=== PATIENT | male | born 1955 | race Caucasian/White ===

== ENCOUNTER → 2017-01-30 | Outpatient (CLI) | payer OTHER ==
--- NOTE | 2017-01-30 16:00 | CT ---
EXAMINATION: CT thoracic spine HISTORY: Paralysis COMPARISON: MRI from the same day TECHNIQUE: Axial CT images obtained through the thoracic spine without contrast. Coronal and sagitta l reconstructions obtained. FINDINGS: The thoracic spinal alignment appears grossly normal. There is mild wedging of the T10 carmine tebral body. There are osseous fragments within the central canal posterior to T10-T11. Posterior fu vidya hardware is noted extending from T8 to L1 bilaterally. Bone mineralization appears normal. The paravertebral soft tissues appear grossly normal. Mild dependent atelectasis is noted within the mary gs. There is mild neural foraminal stenosis noted on the left at T8-T9, T9-T10, and T10-T11. Facet f usion is also noted from T9 to T11 level and bilaterally IMPRESSION: 1. Posterior fusion hardware noted from T8 to L1 bilaterally. 2. Mild compression of the T10 vertebral body with osseous fragments within the spinal canal at T10- T11 gradegrade: 3. No acute osseous abnormality.
--- NOTE | 2017-01-31 08:54 | MR ---
EXAMINATION: MRI of thoracic spine HISTORY: Pain COMPARISON: CT from the same day TECHNIQUE: Multiplanar and multisequence images obtained through the thoracic spine without contrast . FINDINGS: Again noted is bilateral posterior fusion hardware within the thoracolumbar spine. Endplat e signal changes are noted at T7-T8 otherwise no abnormal bone marrow signal demonstrated. The thora cic spinal cord signal appears normal to the T8 level. Below this the spinal cord is not well apprec iated. There appears to be disruption of the thecal sac at T10-T11. The paravertebral soft tissues a ppear normal. T1-T2: Minimal diffuse disc bulge without significant spinal canal or neural foraminal stenosis. T2-T3: Minimal diffuse disc bulge without significant spinal canal or neural foraminal stenosis. T3-T4: Minimal diffuse disc bulge without significant spinal canal or neural foraminal stenosis. T4-T5: Unremarkable. T5-T6: Unremarkable. T6-T7: Unremarkable. T7-T8: Moderate diffuse disc bulge with mild spinal canal stenosis. No significant neural foraminal stenosis. T8-T9: Grossly unremarkable. T9-T10: Disc space narrowing without significant disc bulge, spinal canal or neural foraminal stenos is. T10-T11: Disruption of the thecal sac without visualization of the spinal cord at this level. T11-T12: Unremarkable. IMPRESSION: 1. Disruption of the thecal sac at T10 with nonvisualization of the spinal cord below T7-T8 likely p osttraumatic in nature. 2. Bilateral posterior fusion hardware noted within the thoracolumbar region. 3. Mild multilevel degenerative disc disease with individual details above.
== END ==
LOC: MW.MRI 10:22
PROVIDERS: ATTEND Pain Medicine Pain Medicine
DX: M54.6 Pain in thoracic spine (principal); G82.20 Paraplegia, unspecified; M51.34 Other intervertebral disc degeneration, thoracic region; Z98.1 Arthrodesis status
CPT/HCPCS: 72128; 72128-26; 72146; 72146-26

== ENCOUNTER 2019-12-28 19:18 | Emergency (ER) | payer OTHER ==
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
[2019-12-28 19:59] LABS: BLOOD UREA NITROGEN,BUN 20 mg/dL (7.0-18.0); CARBON DIOXIDE,CO2 21.6 mmol/L (21.0-32.0); CHLORIDE,CL 101 mmol/L (98-107); GLUCOSE RANDOM 176 mg/dL (74-106); POTASSIUM,K 3.3 mmol/L (3.5-5.1); SODIUM,NA 140 mmol/L (136-148)
--- NOTE | 2019-12-28 20:11 | CT ---
Head CT Technique: Multiple axial sections through the brain were obtained. Intravenous contrast was not utilized. Comparison: No prior intracranial imaging is available. Findings: Ventricles along with basal cisterns and sulci over the convexities are moderately prominent. Atherosclerotic change is noted within the carotid siphon. No abnormal parenchymal densities are seen. No evidence of intracranial hemorrhage. No midline shift or mass-effect is seen. Slight mucosal thickening is seen within the inferior right maxillary sinus and within the posterior left ethmoid sinus. No acute calvarial finding is seen. Mastoid sinuses are clear. Impression: 1. Minimal sinus findings which are most likely chronic. 2. Generalized atrophy. 3. No acute intracranial abnormality is appreciated. Diagnostic code #2 This report was dictated in [place] Standard Time
[2019-12-28 22:26] VITALS: BP 150/76; PULSE 84
== END 2019-12-28 21:50 | disposition home or self-care (01) ==
LOC: MW.ED 19:18
DX: Z00.00 Encounter for general adult medical examination without abnormal findings (principal); Z79.899 Other long term (current) drug therapy
CPT/HCPCS: 36415; 70450; 70450-26; 80053; 80305-QW; 80307; 81001; 84145; 84484; 85025; 85610; 86140; 93005; 99283; 99285-25

== ENCOUNTER 2020-04-20 09:38 | Day surgery (SDC) | payer OTHER ==
[~2020-04-20 09:38] MED LIST: Belladonna Alkaloids/Opium 16.2-30 MG Supp RECTAL ONE; Lactated Ringers 1,000 ML IV SCH; Sodium Chloride 0.9% 10 ML SDV IV PRN; Sodium Chloride 0.9% 10 ML Syringe FLUSH PRN; Sodium Chloride 0.9% 2.5 ML Syringe FLUSH PRN
[2020-04-20] MEDS ORDERED: fentaNYL 250 MCG/5 ML SDV ONE ×2 (10:25→11:37)
[2020-04-20] MEDS ORDERED: Midazolam 1 MG/ML 2 ML SDV ONE ×2 (10:25→11:37)
[2020-04-20] MEDS ORDERED: Propofol 200 MG/20 ML SDV ONE ×2 (10:25→11:37)
[2020-04-20] MEDS ORDERED: Ondansetron 4 MG/2 ML SDV ONE (10:28)
[2020-04-20] MEDS ORDERED: Lidocaine 2% 5 ML SDV ONE (10:28)
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
[2020-04-20] MEDS ORDERED: Gentamicin 40 MG/ML 2 ML Vial ONE (11:58)
[2020-04-20] MEDS ORDERED: Lidocaine 1% 20 ML MDV ONE (12:01)
[2020-04-20] MEDS ORDERED: Bupivacaine 0.5% 10 ML SDV ONE (12:01)
[2020-04-20] MEDS ORDERED: ePHEDrine 50 MG/ML SDV ONE (12:25)
[2020-04-20] MEDS ORDERED: fentaNYL 100 MCG/2 ML SDV IVPUSH PRN (12:28)
[2020-04-20] MEDS ORDERED: OXYCODONE 15 MG PO PRN (12:49)
[2020-04-20] MEDS ORDERED: Non-Formulary Medication 1 Each (Lorazepam 0.5 MG) PO PRN (12:49)
[2020-04-20] MEDS ORDERED: HYDROCORTISONE RECTAL PRN (12:49)
[2020-04-20] MEDS ORDERED: OXYCODONE 5 MG PO SCH (13:00)
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
--- NOTE | 2020-04-20 14:13 | PCM48HPAN ---
Post Anesthesia Note - EVALUATION WITHIN 48HRS OF ANESTHETIC Vital Signs in Normal Range: Yes Patient Participated in Evaluation: Yes Respiratory Function Stable: Yes Airway Patent: Yes Cardiovascular Function Stable: Yes Hydration Status Stable: Yes Pain Control Satisfactory: Yes Nausea and Vomiting Control Satisfactory: Yes Mental Status Recovered: Yes Vital Signs: Last Vital Signs Temp 97.0 F 04/20/20 13:25 Pulse 71 04/20/20 13:25 Resp 14 04/20/20 13:25 BP 142/79 H 04/20/20 13:25 Pulse Ox 95 04/20/20 13:25
--- NOTE | 2020-04-20 14:13 | PCM.POSTAN ---
POST ANESTHESIA ASSESSMENT - MENTAL STATUS Mental Status: Alert, Oriented - VITAL SIGNS Vital Signs: Last Vital Signs Temp 97.0 F 04/20/20 13:25 Pulse 71 04/20/20 13:25 Resp 14 04/20/20 13:25 BP 142/79 H 04/20/20 13:25 Pulse Ox 95 04/20/20 13:25 - RESPIRATORY Respiratory Status: Respiratory Rate WNL, Airway Patent, O2 Saturation Stable - CARDIOVASCULAR CV Status: Pulse Rate WNL, Blood Pressure Stable - GASTROINTESTINAL GI Status: No Symptoms - POST OP HYDRATION Hydration Status: Adequate & Stable
[2020-04-20 16:24] VITALS: BP 145/82; PULSE 65
[2020-04-20] MEDS ORDERED: Non-Formulary Medication 1 Each (Tizanidine [Zanaflex] 4 MG) PO SCH (21:00)
[2020-04-20] MEDS ORDERED: PREGABALIN 150 MG PO SCH (21:00)
[2020-04-20] MEDS ORDERED: CLOTRIMAZOLE TOP SCH (21:00)
[2020-04-20] MEDS ORDERED: ZOLPIDEM TARTRATE 10 MG PO SCH (21:00)
[2020-04-20] MEDS ORDERED: Non-Formulary Medication 1 Each (Simvastatin [Zocor] 20 MG) PO SCH (21:00)
[2020-04-20] MEDS ORDERED: NITROFURANTOIN MACROCRYSTAL 100 MG PO SCH (21:00)
[2020-04-21] MEDS ORDERED: MIRTAZAPINE 30 MG PO SCH (09:00)
[2020-04-21] MEDS ORDERED: TOLTERODINE 4 MG PO SCH (09:00)
[2020-04-21] MEDS ORDERED: Benztropine 1 MG Tab PO SCH (09:00)
[2020-04-21] MEDS ORDERED: SOLIFENACIN SUCCINATE 10 MG PO SCH (09:00)
[2020-04-21] MEDS ORDERED: Non-Formulary Medication 1 Each (Omeprazole [Omeprazole] 20 MG) PO SCH (09:00)
[2020-04-21] MEDS ORDERED: WARFARIN 6 MG PO SCH (09:00)
[2020-04-21] MEDS ORDERED: ARIPiprazole 10 MG Tab PO SCH (09:00)
== END 2020-04-20 16:10 | disposition home or self-care (01) ==
LOC: MW.SDS 09:38
PROVIDERS: ATTEND Urology
DX: N31.8 Other neuromuscular dysfunction of bladder (principal); J45.909 Unspecified asthma, uncomplicated; F41.9 Anxiety disorder, unspecified; F32.9 Major depressive disorder, single episode, unspecified; K21.9 Gastro-esophageal reflux disease without esophagitis; E78.00 Pure hypercholesterolemia, unspecified; G82.20 Paraplegia, unspecified; Z87.828 Personal history of other (healed) physical injury and trauma; Z88.0 Allergy status to penicillin; Z88.1 Allergy status to other antibiotic agents; Z79.899 Other long term (current) drug therapy
CPT/HCPCS: 51102; A9270; J1580; J2001; J2250; J2405; J2704; J3010; J3260; J7050; J7120; J3490

== ENCOUNTER 2021-01-06 21:17 | Emergency (ER) | payer OTHER ==
--- NOTE | 2021-01-06 21:31 | EDM.PDOC ---
ED HPI GENERAL MEDICAL PROBLEM - General Chief Complaint: Genitourinary Problem Stated Complaint: EMS Time Seen by Provider: 01/06/21 21:30 - History of Present Illness INITIAL COMMENTS - FREE TEXT/NARRATIVE: History of present illness: This paraplegic gentleman had his catheter flushed at [facility] today but then he accidentally snagged it and pulled it out this afternoon 1 hour before [facility]. Patient is paraplegic and has a neurogenic bladder. The catheter has been in place for 6 months or more. This particular one has been changed in less than a month. It got clogged and was flushed today at the [facility]. Review of systems: As per history of present illness and below otherwise all systems reviewed and negative. Past medical history: As per history of present illness and as reviewed below otherwise noncontributory. Surgical history: As per history of present illness and as reviewed below otherwise noncontributory. Social history: No reported history of drug or alcohol abuse. Family history: As per history of present illness and as reviewed below otherwise noncontributory. Physical exam: Constitutional - well developed, well-nourished and in no acute distress HEENT - normocephalic, no evidence of trauma - external nose and mouth normal - no mass in neck and no JVD - mucosae moist EYES - full EOM, PERRL, no icterus - no evidence of inflammation, injection, or drainage Respiratory - no respiratory distress, equal bilateral expansion GI - abdomen soft and suprapubic ostomy is not inflamed. Musculoskeletal no gross deformity of long bones or joints - no tenderness, swe lling or edema Neurologic - Alert and oriented times four - CN II-XII grossly intact - paraplegic Psychiatric - appropriate mood and affect with normal thought content Hematologic - No petechiae or purpura - mucosa appropriate color and sclera not pale - normal nail bed color and refill Integument - no rash or evidence of trauma - normal turgor Diagnostics: [] Therapeutics: [] Impression: [] Plan: [] Definitive disposition and diagnosis as appropriate pending reevaluation and review of above. - Related Data Allergies Allergy/AdvReac Type Severity Reaction Status Date / Time amoxicillin [From Augmentin] Allergy Cannot Verified 04/16/20 10:15 Remember clavulanic acid Allergy Cannot Verified 04/16/20 10:15 [From Augmentin] Remember Home Meds: Home Meds tiZANidine [Zanaflex] 4 mg PO BEDTIME 11/21/14 [History] LORazepam 0.5 mg PO DAILY PRN 05/31/15 [History] Omeprazole 20 mg PO DAILY 05/31/15 [History] Pregabalin [Lyrica] 150 mg PO BID 05/31/15 [History] Simvastatin [Zocor] 20 mg PO BEDTIME 05/31/15 [History] Tolterodine [Detrol LA 24 Hr] 4 mg PO DAILY 05/31/15 [History] Warfarin [Coumadin] 6 mg PO DAILY 12/28/19 [History] polyethylene glycoL 3350 [Miralax] 17 gm PO DAILY PRN 12/28/19 [History] ARIPiprazole [Abilify] 20 mg PO DAILY 04/16/20 [History] Benztropine Mesylate 1 mg PO DAILY 04/16/20 [History] Clotrimazole [Clotrimazole 1%] 1 applic TOP BID 04/16/20 [History] Hydrocortisone [Hydrocortisone 2.5% Crm] 1 applic RECTAL ASDIRECTED PRN 04/16/20 [History] Mirtazapine 30 mg PO DAILY 04/16/20 [History] Solifenacin Succinate 10 mg PO DAILY 04/16/20 [History] Zolpidem Tartrate 10 mg PO BEDTIME 04/16/20 [History] nitrofurantoin macrocrystaL [Macrodantin] 100 mg PO BID 04/16/20 [History] oxyCODONE 5 mg PO Q6H 04/16/20 [History] oxyCODONE 15 mg PO BID PRN 04/16/20 [History] Past Medical History HEENT History: Reports: Other (See Below) Other HEENT History: wears glasses Cardiovascular History: Reports: Blood Clots/VTE/DVT Other Cardiovascular History: hx of DVT- PE (post-op back surgery in 2014) had filter placed in "abdomen" Respiratory History: Reports: Asthma Other Respiratory History: hx of asthma as a child- no inhaler Gastrointestinal History: Reports: GERD Other Gastrointestinal History: s/p umbilical hernia repair 2009 Genitourinary History: Reports: Urinary Incontinence Other Genitourinary History: patient does self catheterization every 4-5 hours Musculoskeletal History: Reports: Back Pain, Chronic Other Musculoskeletal History: 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 Neurological History: Reports: Other (See Below) Other Neuro History: 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 Psychiatric History: Reports: Anxiety, Depression Other Psychiatric History: taking Cymbalta and Lorazepam Hematologic History: Reports: Anticoagulation Therapy, Blood Transfusion(s) Other Hematologic History: 2013 - Infectious Disease History Infectious Disease History: Reports: Chicken Pox - Past Surgical History Head Surgeries/Procedures: Reports: None Cardiovascular Surgical History: Reports: Vascular Surgery Other Cardiovascular Surgeries/Procedures: "filter " placed in "abdomen" becaused of DVT GI Surgical History: Reports: Hernia, Abdominal Other GI Surgeries/Procedures: hx of Umbilical hernia repair Neurological Surgical History: Reports: Other (See Below) Other Neurological Surgeries/Procedures: rods in back Other Musculoskeletal Surgeries/Procedures:: back surgery Social & Family History - Caffeine Use Caffeine Use: Reports: Soda ED ROS GENERAL - Review of Systems Review Of Systems: Comprehensive ROS is negative, except as noted in HPI. ED EXAM, GENERAL - Physical Exam Exam: See Below Free Text/Narrative:: My physical exam is in the HPI Course - Vital Signs Text/Narrative:: After sterile prep the suprapubic catheter was replaced uneventfully and urine flu - Orders/Labs/Meds Orders: Active Orders 24 hr Category Date Time Status Childers Catheter Insertion [Insert Urinary Catheter] [OM. Care 01/06/21 21:30 Ordered PC] Q24H Urinary Catheter Assessment [RC] ASDIRECTED Care 01/06/21 21:26 Active Departure - Departure Time of Disposition: 10:00 Disposition: Home, Self-Care 01 Condition: Good Clinical Impression: Dislodged Childesr catheter, Suprapubic catheter - Discharge Information Instructions: Indwelling Urinary Catheter Care, Adult Referrals: PCP,Unknown [Primary Care Provider] - Forms: ED Department Discharge Additional Instructions: [facility] - Urology [address] [place] [id number] The following information is given to patients seen in the emergency department who are being discharged to home. This information is to outline your options for follow-up care. We provide all patients seen in our emergency department with a follow-up referral. The need for follow-up, as well as the timing and circumstances, are variable depending upon the specifics of your emergency department visit. If you don't have a primary care physician on staff, we will provide you with a referral. We always advise you to contact your personal physician following an emergency department visit to inform them of the circumstance of the visit and for follow-up with them and/or the need for any referrals to a consulting specialist. The emergency department will also refer you to a specialist when appropriate. This referral assures that you have the opportunity for follow-up care with a specialist. All of these measure are taken in an effort to provide you with optimal care, which includes your follow-up. Under all circumstances we always encourage you to contact your private physician who remains a resource for coordinating your care. When calling for follow-up care, please make the office aware that this follow-up is from your recent emergency room visit. If for any reason you are refused follow-up, please contact the [facility] Emergency Department at and asked to speak to the emergency department charge nurse. - My Orders Last 24 Hours: My Active Orders 01/06/21 21:26 Urinary Catheter Assessment [RC] ASDIRECTED 01/06/21 21:30 Childers Catheter Insertion [Insert Urinary Catheter] [OM.PC] Q24H - Assessment/Plan Last 24 Hours: My Active Orders 01/06/21 21:26 Urinary Catheter Assessment [RC] ASDIRECTED 01/06/21 21:30 Childers Catheter Insertion [Insert Urinary Catheter] [OM.PC] Q24H
[2021-01-06 21:45] VITALS: BP 95/50; PULSE 78
== END 2021-01-06 22:36 | disposition home or self-care (01) ==
LOC: MW.ED 21:17
DX: T83.028A Displacement of other urinary catheter, initial encounter (principal); J45.909 Unspecified asthma, uncomplicated; K21.9 Gastro-esophageal reflux disease without esophagitis; Z88.0 Allergy status to penicillin; Z88.1 Allergy status to other antibiotic agents; Z79.01 Long term (current) use of anticoagulants; Z79.899 Other long term (current) drug therapy
CPT/HCPCS: 51705; 99283-25

== ENCOUNTER 2021-04-20 08:47 | Emergency (ER) | payer OTHER ==
[2021-04-20] MEDS ORDERED: Sodium Chloride 0.9% 2.5 ML Syringe FLUSH PRN (08:50)
[2021-04-20] MEDS ORDERED: Sodium Chloride 0.9% 10 ML Syringe FLUSH PRN (08:50)
--- NOTE | 2021-04-20 09:19 | EDM.PDOC ---
ED HPI GENERAL MEDICAL PROBLEM - General Chief Complaint: Trauma Stated Complaint: EMS Time Seen by Provider: 04/20/21 08:49 - History of Present Illness INITIAL COMMENTS - FREE TEXT/NARRATIVE: HISTORY AND PHYSICAL: History of present illness: This is a 65-year-old gentleman with a history significant for DVT/PE with a IVC filter that was placed secondary to clots that developed postop back surgery in 2014, history significant for lower extremity paraplegia secondary to a fall back in 2013, history of back surgery with rods placed in his lumbar spine secondary to falling off a ladder/trauma to his lower back, status post suprapubic catheter placement, history of depression/anxiety, who presents to the ER today as a trauma evaluation secondary to falling off of the toilet earlier today. Patient denies any LOC or head trauma. According to EMS upon their arrival, the patient does have increased confusion. 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 Patient last worked yesterday and per staff here who know him fairly well report he is usually very pleasant, communicative, and oriented. Per EMS, this is her second evaluation within the last 2 weeks for similar presentation where the patient falls and his caregiver is unable to lift him back into his wheelchair or bed . EMS today was concerned secondary to his confusion upon their arrival. Patient is currently on anticoagulation therapy secondary to history of DVT/PE. Initially upon arrival to the ED the patient does appear to be confused. Per EMS, reports that he was started on Ambien last night with his first dose. Upon reevaluation the ED at approximately 9:30 AM, the patient is alert awake oriented to person, place, month, year, day. Patient reports that he has to work tomorrow and appears to be much more cognitive and back to his baseline. Patient reports no recent fevers, shakes, chills, vomiting, diarrhea. Patient reports he has not had his Childers catheter changed in some time. Review of systems: As per history of present illness and below otherwise all systems reviewed and negative. Past medical history: As per history of present illness and as reviewed below otherwise noncontributory. Surgical history: As per history of present illness and as reviewed below otherwise noncontributory. Social history: No reported history of drug abuse. Family history: As per history of present illness and as reviewed below otherwise noncontributory. Physical exam: This patient was seen and evaluated during the 2019 SARS-CoV-2 novel coronavirus pandemic period. Community viral transmission is ongoing at time of this encounter and the emergency department is operating under pandemic response procedures. Constitutional: Patient is oriented to person, place, and time. Appears well- developed and well-nourished. No distress. HEENT: Moist mucous membranes Head: Normocephalic and atraumatic Eyes: Right eye exhibits no discharge. Left eye exhibits no discharge. No scleral icterus Neck: Normal range of motion. No tracheal deviation present. Cardiovascular: Normal rate and regular rhythm. Pulmonary: Effort normal, no respiratory distress. Abd: Soft, nondistended, no rebound/guarding, no psoas or obturator signs, no tenderness at Mcberney's point, no Huitron's sign. Pt does not present with an exam that would be consistent with an acute surgical abdomen at this time. Nontender to palpation. Suprapubic catheter in place. Musculoskeletal: Normal range of motion Neurologic: Alert and oriented to person, place and time. Skin: [place], warm and dry. Psychiatric: Normal mood and affect. Behavior is normal. Judgment and thought content normal. Nursing note and vital signs have been reviewed Patient has no C-spine T-spine or L-spine tenderness to palpation. Patient has no left upper or right upper quadrant tenderness to palpation. Patient has no crepitus to palpation to the anterior chest wall. Patient is neurologically intact. Patient does not present with any signs or or symptoms that would be consistent with acute intracranial, intra-abdominal, intrathoracic, or long bone injury. All long bones have been palpated and range of motion been performed and there is no evidence of any acute pathology. Diagnostics: CT head and cervical spine reveal no acute intracranial pathology or cervical spine pathology. Patient's labs are all within normal limits. Urinalysis reveals patient does have significant WBC RBC and bacteria in his urine. Although this is a suprapubic catheter, his prior suprapubic catheter UAs in the past have had episodes where they were completely clean so unclear whether or not his confusion might be also related to his UTI along with the Ambien. Therapeutics: Rocephin 1 g IV Suprapubic catheter change. In Assessment and plan: 65-year-old gentleman who presents ER today secondary to fall and trauma evaluation secondary to being on anticoagulation therapy. Patient does appear to be somewhat confused and weak upon initial arrival however during his ER evaluation the patient is slowly improved back to his baseline. Patient is currently alert awake oriented x3. Patient is pleasant and cooperative and asking appropriate questions. Patient reports that he has a doctor's appointment today at 1230 and is requesting to be discharged so that he can make his appointment. Patient's ER evaluation has been unremarkable for any significant traumatic injuries. Patient's urinalysis is equivocal for possible UTI as the culprit for his confusion although I believe the most likely contributing factor is the Ambien that he got started on last night. Patient will have his Childers catheter changed here in the ED and will be discharged home with a 7-day course of Omnicef. Definitive disposition and diagnosis as appropriate pending reevaluation and review of above. - Related Data Allergies Allergy/AdvReac Type Severity Reaction Status Date / Time amoxicillin [From Augmentin] Allergy Cannot Verified 04/20/21 09:09 Remember clavulanic acid Allergy Cannot Verified 04/20/21 09:09 [From Augmentin] Remember Home Meds: Home Meds tiZANidine [Zanaflex] 4 mg PO BEDTIME 11/21/14 [History] LORazepam 0.5 mg PO DAILY PRN 05/31/15 [History] Omeprazole 20 mg PO DAILY 05/31/15 [History] Pregabalin [Lyrica] 150 mg PO BID 05/31/15 [History] Simvastatin [Zocor] 20 mg PO BEDTIME 05/31/15 [History] Tolterodine [Detrol LA 24 Hr] 4 mg PO DAILY 05/31/15 [History] Warfarin [Coumadin] 6 mg PO DAILY 12/28/19 [History] polyethylene glycoL 3350 [Miralax] 17 gm PO DAILY PRN 12/28/19 [History] ARIPiprazole [Abilify] 20 mg PO DAILY 04/16/20 [History] Benztropine Mesylate 1 mg PO DAILY 04/16/20 [History] Clotrimazole [Clotrimazole 1%] 1 applic TOP BID 04/16/20 [History] Hydrocortisone [Hydrocortisone 2.5% Crm] 1 applic RECTAL ASDIRECTED PRN 04/16/20 [History] Mirtazapine 30 mg PO DAILY 04/16/20 [History] Solifenacin Succinate 10 mg PO DAILY 04/16/20 [History] Zolpidem Tartrate 10 mg PO BEDTIME 04/16/20 [History] oxyCODONE 5 mg PO Q6H 04/16/20 [History] oxyCODONE 15 mg PO BID PRN 04/16/20 [History] Cefdinir 300 mg PO Q12HR #14 capsule 04/20/21 [Rx] Past Medical History HEENT History: Reports: Other (See Below) Other HEENT History: wears glasses Cardiovascular History: Reports: Blood Clots/VTE/DVT Other Cardiovascular History: hx of DVT- PE (post-op back surgery in 2014) had filter placed in "abdomen" Respiratory History: Reports: Asthma Other Respiratory History: hx of asthma as a child- no inhaler Gastrointestinal History: Reports: GERD Other Gastrointestinal History: s/p umbilical hernia repair 2009 Genitourinary History: Reports: Urinary Incontinence Other Genitourinary History: patient does self catheterization every 4-5 hours Musculoskeletal History: Reports: Back Pain, Chronic Other Musculoskeletal History: 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 Neurological History: Reports: Other (See Below) Other Neuro History: 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 Psychiatric History: Reports: Anxiety, Depression Other Psychiatric History: taking Cymbalta and Lorazepam Hematologic History: Reports: Anticoagulation Therapy, Blood Transfusion(s) Other Hematologic History: 2013 - Infectious Disease History Infectious Disease History: Reports: Chicken Pox - Past Surgical History Head Surgeries/Procedures: Reports: None Cardiovascular Surgical History: Reports: Vascular Surgery Other Cardiovascular Surgeries/Procedures: "filter " placed in "abdomen" becaused of DVT GI Surgical History: Reports: Hernia, Abdominal Other GI Surgeries/Procedures: hx of Umbilical hernia repair Neurological Surgical History: Reports: Other (See Below) Other Neurological Surgeries/Procedures: rods in back Other Musculoskeletal Surgeries/Procedures:: back surgery Social & Family History - Caffeine Use Caffeine Use: Reports: Soda Review of Systems - Review of Systems Review Of Systems: See Below ED EXAM, GENERAL - Physical Exam Exam: See Below #1 Interpretation EKG Interpretation Comments: EKG: As interpreted by ER physician: [place]: Nonspecific ST-T wave abnormalities Left axis deviation Incomplete right bundle branch block with a left anterior hemiblock No evidence of ST elevation [place] Normal sinus rhythm heart rate of 86 Course - Vital Signs Last Recorded V/S: Last Vital Signs Temp 98 F 06/30/21 09:06 Pulse 99 04/20/21 09:06 Resp BP 160/70 H 04/20/21 09:06 Pulse Ox 97 04/20/21 09:06 - Orders/Labs/Meds Orders: Active Orders 24 hr Category Date Time Status EKG Documentation Completion [RC] AM Care 04/20/21 08:57 Active CORONAVIRUS COVID-19 WILLY [MOLEC] Stat Lab 04/20/21 08:50 Ordered Sodium Chloride 0.9% [Saline Flush] Med 04/20/21 08:50 Active 10 ml FLUSH ASDIRECTED PRN Sodium Chloride 0.9% [Saline Flush] Med 04/20/21 08:50 Active 2.5 ml FLUSH ASDIRECTED PRN Saline Lock Insert [OM.PC] Stat Oth 04/20/21 08:50 Ordered Medication Orders Sodium Chloride (Sodium Chloride 0.9% 10 Ml Syringe) 10 ml FLUSH ASDIRECTED PRN PRN Reason: Keep Vein Open Last Admin: 04/20/21 09:55 Dose: 10 ml Documented by: ALFREDO Sodium Chloride (Sodium Chloride 0.9% 2.5 Ml Syringe) 2.5 ml FLUSH ASDIRECTED PRN PRN Reason: Keep Vein Open Last Admin: 04/20/21 09:55 Dose: 2.5 ml Documented by: ALFREDO Labs: Laboratory Tests 04/20/21 04/20/21 04/20/21 Range/Units 08:55 08:55 08:55 WBC 9.75 (4.0-11.0) K/uL RBC 5.60 (4.50-5.90) M/uL Hgb 16.6 (13.0-17.0) g/dL Hct 49.3 (38.0-50.0) % MCV 88.0 (80.0-98.0) fL MCH 29.6 (27.0-32.0) pg MCHC 33.7 (31.0-37.0) g/dL RDW Std Deviation 46.3 (28.0-62.0) fl RDW Coeff of Emily 14 (11.0-15.0) % Plt Count 230 (150-400) K/uL MPV 10.40 (7.40-12.00) fL Neut % (Auto) 81.7 H (48.0-80.0) % Lymph % (Auto) 13.7 L (16.0-40.0) % [place] % (Auto) 4.0 (0.0-15.0) % Eos % (Auto) 0.5 (0.0-7.0) % Baso % (Auto) 0.1 (0.0-1.5) % Neut # (Auto) 8.0 H (1.4-5.7) K/uL Lymph # (Auto) 1.3 (0.6-2.4) K/uL [place] # (Auto) 0.4 (0.0-0.8) K/uL Eos # (Auto) 0.1 (0.0-0.7) K/uL Baso # (Auto) 0.0 (0.0-0.1) K/uL Nucleated RBC % 0.0 /100WBC Nucleated RBCs # 0 K/uL INR 2.93 Sodium 139 (136-148) mmol/L Potassium 3.6 (3.5-5.1) mmol/L Chloride 102 (98-107) mmol/L Carbon Dioxide 26.6 (21.0-32.0) mmol/L BUN 14 (7.0-18.0) mg/dL Creatinine 0.7 L (0.8-1.3) mg/dL Est Cr Clr Drug Dosing TNP Estimated GFR (MDRD) > 60.0 ml/min Glucose 148 H (74-106) mg/dL Calcium 9.0 (8.5-10.1) mg/dL Total Bilirubin 0.6 (0.2-1.0) mg/dL AST 17 (15-37) IU/L ALT 14 (14-63) IU/L Alkaline Phosphatase 112 (46-116) U/L Total Protein 7.2 (6.4-8.2) g/dL Albumin 3.5 (3.4-5.0) g/dL Globulin 3.7 (2.6-4.0) g/dL Albumin/Globulin Ratio 0.9 (0.9-1.6) Urine Color Urine Appearance Urine pH (5.0-8.0) Ur Specific [place] (1.001-1.035) Urine Protein (NEGATIVE) mg/dL Urine Glucose (UA) (NEGATIVE) mg/dL Urine Ketones (NEGATIVE) mg/dL Urine Occult Blood (NEGATIVE) Urine Nitrite (NEGATIVE) Urine Bilirubin (NEGATIVE) Urine Urobilinogen (<2.0) EU/dL Ur Leukocyte Esterase (NEGATIVE) Urine RBC (0-2/HPF) Urine WBC (0-5/HPF) Ur Epithelial Cells (NONE-FEW) Amorphous Sediment (NEGATIVE) Urine Bacteria (NEGATIVE) Urine Mucus (NONE-MOD) 04/20/21 Range/Units 09:33 WBC (4.0-11.0) K/uL RBC (4.50-5.90) M/uL Hgb (13.0-17.0) g/dL Hct (38.0-50.0) % MCV (80.0-98.0) fL MCH (27.0-32.0) pg MCHC (31.0-37.0) g/dL RDW Std Deviation (28.0-62.0) fl RDW Coeff of Emily (11.0-15.0) % Plt Count (150-400) K/uL MPV (7.40-12.00) fL Neut % (Auto) (48.0-80.0) % Lymph % (Auto) (16.0-40.0) % [place] % (Auto) (0.0-15.0) % Eos % (Auto) (0.0-7.0) % Baso % (Auto) (0.0-1.5) % Neut # (Auto) (1.4-5.7) K/uL Lymph # (Auto) (0.6-2.4) K/uL [place] # (Auto) (0.0-0.8) K/uL Eos # (Auto) (0.0-0.7) K/uL Baso # (Auto) (0.0-0.1) K/uL Nucleated RBC % /100WBC Nucleated RBCs # K/uL INR Sodium (136-148) mmol/L Potassium (3.5-5.1) mmol/L Chloride (98-107) mmol/L Carbon Dioxide (21.0-32.0) mmol/L BUN (7.0-18.0) mg/dL Creatinine (0.8-1.3) mg/dL Est Cr Clr Drug Dosing Estimated GFR (MDRD) ml/min Glucose (74-106) mg/dL Calcium (8.5-10.1) mg/dL Total Bilirubin (0.2-1.0) mg/dL AST (15-37) IU/L ALT (14-63) IU/L Alkaline Phosphatase (46-116) U/L Total Protein (6.4-8.2) g/dL Albumin (3.4-5.0) g/dL Globulin (2.6-4.0) g/dL Albumin/Globulin Ratio (0.9-1.6) Urine Color YELLOW Urine Appearance SLT CLOUDY Urine pH 6.0 (5.0-8.0) Ur Specific [place] 1.025 (1.001-1.035) Urine Protein TRACE H (NEGATIVE) mg/dL Urine Glucose (UA) NEGATIVE (NEGATIVE) mg/dL Urine Ketones 15 H (NEGATIVE) mg/dL Urine Occult Blood LARGE H (NEGATIVE) Urine Nitrite POSITIVE H (NEGATIVE) Urine Bilirubin NEGATIVE (NEGATIVE) Urine Urobilinogen 0.2 (<2.0) EU/dL Ur Leukocyte Esterase MODERATE H (NEGATIVE) Urine RBC 15-20 (0-2/HPF) Urine WBC 15-20 (0-5/HPF) Ur Epithelial Cells RARE (NONE-FEW) Amorphous Sediment LIGHT (NEGATIVE) Urine Bacteria 2+ H (NEGATIVE) Urine Mucus LIGHT (NONE-MOD) Meds: Medications Generic Name Dose Route Start Last Admin Trade Name Freq PRN Reason Stop Dose Admin Sodium Chloride 10 ml 04/20/21 08:50 04/20/21 09:55 Sodium Chloride 0.9% 10 Ml Syringe FLUSH 10 ml ASDIRECTED PRN Administration Keep Vein Open Sodium Chloride 2.5 ml 04/20/21 08:50 04/20/21 09:55 Sodium Chloride 0.9% 2.5 Ml Syringe FLUSH 2.5 ml ASDIRECTED PRN Administration Keep Vein Open Discontinued Medications Generic Name Dose Route Start Last Admin Trade Name Freq PRN Reason Stop Dose Admin Ceftriaxone Sodium/Dextrose 1 50 mls @ 100 mls/hr 04/20/21 10:25 04/20/21 10:47 gm/ Premix IV 04/20/21 10:54 100 mls/hr ONETIME ONE Administration Departure - Departure Time of Disposition: 10:48 Disposition: Home, Self-Care 01 Condition: Good Clinical Impression: Confusion, Fall in elderly patient, Anticoagulated Urinary tract infection Qualifiers: Urinary tract infection type: catheter-associated UTI Indwelling urinary catheter type: indwelling urethral catheter Encounter type: initial encounter Qualified Code(s): T83.511A - Infection and inflammatory reaction due to indwelling urethral catheter, initial encounter Head injury Qualifiers: Encounter type: initial encounter Qualified Code(s): S09.90XA - Unspecified injury of head, initial encounter - Discharge Information Prescriptions: Cefdinir 300 mg PO Q12HR #14 capsule Instructions: Fall Prevention in the Home, Adult, [id number], Confusion Referrals: Abdoulaye Brady MD [Primary Care Provider] - Forms: ED Department Discharge Additional Instructions: Your seen and evaluated in the ER today secondary to concerns regarding confusion and falling at home. The work-up that we performed in the ED has been unremarkable except for a possible urinary tract infection. You have been given a dose of Rocephin IV in the ED and will be discharged home with an antibiotic to take. He will be given Omnicef 300 mg to take twice a day for 7 days. Please keep your appointment with your family doctor today. I would recommend that he discontinue taking the Ambien at that is a long-acting drug that likely is affecting your cognition in the morning. This is something that you may want discussed with your family doctor today to see if you would agree with stopping the Ambien. The following information is given to patients seen in the emergency department who are being discharged to home. This information is to outline your options for follow-up care. We provide all patients seen in our emergency department with a follow-up referral. The need for follow-up, as well as the timing and circumstances, are variable depending upon the specifics of your emergency department visit. If you don't have a primary care physician on staff, we will provide you with a referral. We always advise you to contact your personal physician following an emergency department visit to inform them of the circumstance of the visit and for follow-up with them and/or the need for any referrals to a consulting specialist. The emergency department will also refer you to a specialist when appropriate. This referral assures that you have the opportunity for follow-up care with a specialist. All of these measure are taken in an effort to provide you with optimal care, which includes your follow-up. Under all circumstances we always encourage you to contact your private physician who remains a resource for coordinating your care. When calling for follow-up care, please make the office aware that this follow-up is from your recent emergency room visit. If for any reason you are refused follow-up, please contact the [facility] Emergency Department at and asked to speak to the emergency department charge nurse. [facility] [address] [place] [address] [facility] [address] [place] [id number] Sepsis Event Note (ED) - Evaluation Sepsis Screening Result: No Definite Risk - Focused Exam Vital Signs: Vital Signs Temp Pulse BP Pulse Ox 04/20/21 09:06 98 F 99 160/70 H 97 - My Orders Last 24 Hours: My Active Orders 04/20/21 08:50 CORONAVIRUS COVID-19 WILLY [MOLEC] Stat Sodium Chloride 0.9% [Saline Flush] 10 ml FLUSH ASDIRECTED PRN Sodium Chloride 0.9% [Saline Flush] 2.5 ml FLUSH ASDIRECTED PRN Saline Lock Insert [OM.PC] Stat 04/20/21 08:57 EKG Documentation Completion [RC] AM - Assessment/Plan Last 24 Hours: My Active Orders 04/20/21 08:50 CORONAVIRUS COVID-19 WILLY [MOLEC] Stat Sodium Chloride 0.9% [Saline Flush] 10 ml FLUSH ASDIRECTED PRN Sodium Chloride 0.9% [Saline Flush] 2.5 ml FLUSH ASDIRECTED PRN Saline Lock Insert [OM.PC] Stat 04/20/21 08:57 EKG Documentation Completion [RC] AM
--- NOTE | 2021-04-20 09:22 | CR ---
For Patients: As a result of the Cures Act, medical imaging exams and procedure reports are released immediately into your electronic medical record. You may view this report before your referring provider. If you have questions, please contact your health care provider. INDICATION: Altered mental status. TECHNIQUE: Single AP view of the chest. COMPARISON: 06/30/2015. FINDINGS: There are hypoventilatory changes of the lungs. There are patchy opacities in both lungs. No pneumothorax or significant effusion. Cardiomediastinal silhouette is unremarkable for any P view. Long segment spinal fusion. No acute osseous findings. IMPRESSION: Patchy opacities in both lungs superimposed on hypoventilatory changes. Differential considerations include atelectasis and infection. Dictated by Michael Khalil MD @ 04/20/2021 9:20:52 AM Dictated by: Michael Khalil MD @ 04/20/2021 09:20:59 (Electronically Signed)
--- NOTE | 2021-04-20 09:35 | CT ---
INDICATION: Fall from sitting COMPARISON: December 28, 2019 TECHNIQUE: CT examination of the head was performed as axial sections without intravenous contrast. Images were obtained from the vertex of the skull through the skull base. Please note that all CT scans at this facility use dose modulation, iterative reconstruction, and/or weight-based dosing when appropriate to reduce radiation dose to as low as reasonably achievable. FINDINGS: The brain shows no sign of mass lesion, mass effect, hemorrhage, or edema. There are involutional changes. There is mild cortical atrophy and there is mild white matter disease. There is no hydrocephalus. The visualized portions of the orbits are normal in appearance. The osseous structures are normal in appearance with no sign of abnormality in the skull base or calvarium. IMPRESSION: Involutional changes. No acute-appearing findings. Please note that all CT scans at this facility use dose modulation, iterative reconstruction, and/or weight-based dosing when appropriate to reduce radiation dose to as low as reasonably achievable. Dictated by Ciro Craven MD @ 04/20/2021 9:32:[address] Ciro Craven @ Apr 20 2021 9:32AM
[2021-04-20 09:36] LABS: BLOOD UREA NITROGEN,BUN 14 mg/dL (7.0-18.0); CARBON DIOXIDE,CO2 26.6 mmol/L (21.0-32.0); CHLORIDE,CL 102 mmol/L (98-107); GLUCOSE RANDOM 148 mg/dL (74-106); POTASSIUM,K 3.6 mmol/L (3.5-5.1); SODIUM,NA 139 mmol/L (136-148)
--- NOTE | 2021-04-20 09:39 | CT ---
INDICATION: Fall from sitting position COMPARISON: None TECHNIQUE: CT examination of the cervical spine is performed without contrast using spiral technique. Thin axial, sagittal and coronal reconstructions were made. Please note that all CT scans at this facility use dose modulation, iterative reconstruction, and/or weight-based dosing when appropriate to reduce radiation dose to as low as reasonably achievable. FINDINGS: : There is no malalignment. There is no lytic or blastic lesion, fracture or dislocation identified. There are relatively mild degenerative changes. IMPRESSION: No fracture, dislocation or destructive process. Relatively mild degenerative changes. Please note that all CT scans at this facility use dose modulation, iterative reconstruction, and/or weight-based dosing when appropriate to reduce radiation dose to as low as reasonably achievable. Dictated by Ciro Cravne MD @ 04/20/2021 9:37:[address] Ciro Craven @ Apr 20 2021 9:37AM
[2021-04-20] MEDS ORDERED: cefTRIAXone 1 GM in Premix Bag 1 BAG IV ONE (10:25)
[2021-04-20 17:47] VITALS: BP 138/69; PULSE 87
== END 2021-04-20 11:25 | disposition home or self-care (01) ==
LOC: MW.ED 08:47
DX: T83.511A Infection and inflammatory reaction due to indwelling urethral catheter, initial encounter (principal); S09.90XA Unspecified injury of head, initial encounter; N39.0 Urinary tract infection, site not specified; R41.0 Disorientation, unspecified; D68.9 Coagulation defect, unspecified; K21.9 Gastro-esophageal reflux disease without esophagitis; Z88.0 Allergy status to penicillin; Z79.899 Other long term (current) drug therapy; W18.39XA Other fall on same level, initial encounter
CPT/HCPCS: 36415; 70450; 71045; 72125; 80053; 81001; 85025; 85610; 93005; 96365; 99285; J0696

== ENCOUNTER 2021-04-23 09:38 | Emergency (ER) | payer BC, OTHER ==
[2021-04-23] MEDS ORDERED: Sodium Chloride 0.9% 2.5 ML Syringe FLUSH PRN (09:49)
[2021-04-23] MEDS ORDERED: Sodium Chloride 0.9% 1,000 ML IV ONE (09:49)
[2021-04-23] MEDS ORDERED: Sodium Chloride 0.9% 10 ML Syringe FLUSH PRN (09:49)
[2021-04-23 10:15] LABS: BLOOD UREA NITROGEN,BUN 13 mg/dL (7.0-18.0); CARBON DIOXIDE,CO2 27.8 mmol/L (21.0-32.0); CHLORIDE,CL 104 mmol/L (98-107); GLUCOSE RANDOM 144 mg/dL (74-106); POTASSIUM,K 3.6 mmol/L (3.5-5.1); SODIUM,NA 140 mmol/L (136-148)
--- NOTE | 2021-04-23 11:30 | EDM.PDOC ---
ED HPI GENERAL MEDICAL PROBLEM - General Chief Complaint: General Stated Complaint: FALL Time Seen by Provider: 04/23/21 09:48 - History of Present Illness INITIAL COMMENTS - FREE TEXT/NARRATIVE: HISTORY AND PHYSICAL: History of present illness: This is a 65-year-old gentleman with a history significant for DVT/PE status post IVC filter placement secondary to clots that developed postop after having back surgery in 2014, history significant for lower extremity paraplegia secondary to a fall back in 2013, history of back surgery with rods placed in his lumbar spine secondary to trauma in 2013, status post suprapubic catheter placement, history of depression and anxiety, who presents to the ER today by EMS secondary to incoherent speech, confusion, and fall from his wheelchair. With had a long discussion with his who appears to be extremely frustrated with caring for him at this time. She reports that today when she woke up she assisted him into his wheelchair and into the bathroom. She reports while he was in there she tried to get him back into his wheelchair however he was not assisting her and was not fully coherent and he ended up having to slide him down to the floor. Patient's reports that he did not have any loss of consciousness or head trauma. She reports that she called EMS for assistance. She reports that she is extremely frustrated with his altered mentation is in the morning and needed him evaluated. When EMS first arrived they reported that the had wanted him to go to a prison however the denies that that her intent and just wants to make sure that he is medically okay and that all his labs are normal. His appears to be extremely frustrated and having a hard time caring for him with his confusion in the morning. She reports that during the weekdays on Sunday through Sunday she has a caregiver that comes to the house and assists her in the morning with his activities of daily living. She reports that on Saturdays and Sundays she is on her own. His reports that he is at baseline alert awake oriented and cooperative. 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 Patient has been seen by me in the ED yesterday when I checked him and he was alert awake oriented pleasant and conversant while working. At baseline, the patient appears to be very competent with the capacity for medical decision- making per himself and his . Upon initial presentation to the ED, the patient was somewhat confused but was able to tell me the day, month, year, name, location without any difficulty or hesitancy. Patient reports that he does not work today and he works on Mondays. Patient was aware that today was Sunday After work until 2 days. Patient denies any recent fevers, shakes, chills, nausea, vomiting, diarrhea, abdominal pain, chest pain. Patient reports that has been eating and drinking well without any difficulties. Patient was recently diagnosed with a urinary tract infection and has been taking the antibiotic as prescribed for him. Patient reports that he has an extremely difficult time sleeping any has continue taking the Ambien which I had strongly recommended that he stop taking weeks I feel that this is a high likely culprit to his morning confusion. During my discussion with his , she reports that he has [place] no problem with insomnia and that he sleeps within 2 to 3 minutes of going to bed. She reports that he is an extremely heavy sleeper and difficult to arouse while sleeping at baseline and she does not think he needs Ambien either. She reports that she was reluctant to stop it without speaking to her doctor first. Patient denies any pain or discomfort to his upper or lower extremities. Patient denies any head injury or neck pain. Patient denies any back pain. Review of systems: As per history of present illness and below otherwise all systems reviewed and negative. Past medical history: As per history of present illness and as reviewed below otherwise noncontributory. Surgical history: As per history of present illness and as reviewed below otherwise noncontributory. Social history: No reported history of drug abuse. Family history: As per history of present illness and as reviewed below otherwise noncontributory. Physical exam: This patient was seen and evaluated during the 2019 SARS-CoV-2 novel coronavirus pandemic period. Community viral transmission is ongoing at time of this encounter and the emergency department is operating under pandemic response procedures. Constitutional: Patient is oriented to person, place, and time. Appears well- developed and well-nourished. No distress. HEENT: Moist mucous membranes Head: Normocephalic and atraumatic Eyes: Right eye exhibits no discharge. Left eye exhibits no discharge. No scleral icterus Neck: Normal range of motion. No tracheal deviation present. Cardiovascular: Normal rate and regular rhythm. Pulmonary: Effort normal, no respiratory distress. Abdominal: No distention Musculoskeletal: Normal range of motion Neurologic: Alert and oriented to person, place and time. Skin: Kelly, warm and dry. Psychiatric: Normal mood and affect. Behavior is normal. Judgment and thought content normal. Nursing note and vital signs have been reviewed Patient has no C-spine T-spine or L-spine tenderness to palpation. Patient has no left upper or right upper quadrant tenderness to palpation. Patient has no crepitus to palpation to the anterior chest wall. Patient is neurologically intact. Patient does not present with any signs or or symptoms that would be consistent with acute intracranial, intra-abdominal, intrathoracic, or long bone injury. All long bones have been palpated and range of motion been performed and there is no evidence of any acute pathology. Patient is alert awake and orient x3. Diagnostics: [] Therapeutics: [] Assessment and plan: 65-year-old gentleman who presents ER today secondary to multiple frequent falls. At this time, the patient is alert awake and orient x3. I had a long discussion with the patient's as well as the patient over the phone and given his normal labs, she feels comfortable with the plan to accept him back home again. Patient currently appears to be back to his baseline and he is exhibiting both the capacity for medical decision-making as well as competency. Patient does not want to go to a prison and does not want assistance with placement to a prison. I have discussed with the patient's that she should speak to him and his primary care physician regarding other options that may be available to her and him. Patient's reports that she does have a caregiver that comes Sunday through Sunday and that weekends are slightly more difficult for her because she is on her own with caring for him. At this time, I do not feel that it would be ethical for me to initiate paperwork for patient to go to a prison as that is not his will. As mentioned above, patient is exhibiting both the capacity for medical decision- making and competency while here in the ED. I will respect the patient's autonomy and we will allow him to be discharged back home with his . Patient's at this time appears to be agreeable to this plan. Definitive disposition and diagnosis as appropriate pending reevaluation and review of above. - Related Data Allergies Allergy/AdvReac Type Severity Reaction Status Date / Time amoxicillin [From Augmentin] Allergy Cannot Verified 04/23/21 09:46 Remember clavulanic acid Allergy Cannot Verified 04/23/21 09:46 [From Augmentin] Remember Home Meds: Home Meds tiZANidine [Zanaflex] 4 mg PO BEDTIME 11/21/14 [History] LORazepam 0.5 mg PO DAILY PRN 05/31/15 [History] Omeprazole 20 mg PO DAILY 05/31/15 [History] Pregabalin [Lyrica] 150 mg PO BID 05/31/15 [History] Simvastatin [Zocor] 20 mg PO BEDTIME 05/31/15 [History] Tolterodine [Detrol LA 24 Hr] 4 mg PO DAILY 05/31/15 [History] Warfarin [Coumadin] 6 mg PO DAILY 12/28/19 [History] polyethylene glycoL 3350 [Miralax] 17 gm PO DAILY PRN 12/28/19 [History] ARIPiprazole [Abilify] 20 mg PO DAILY 04/16/20 [History] Benztropine Mesylate 1 mg PO DAILY 04/16/20 [History] Clotrimazole [Clotrimazole 1%] 1 applic TOP BID 04/16/20 [History] Hydrocortisone [Hydrocortisone 2.5% Crm] 1 applic RECTAL ASDIRECTED PRN 04/16/20 [History] Mirtazapine 30 mg PO DAILY 04/16/20 [History] Solifenacin Succinate 10 mg PO DAILY 04/16/20 [History] Zolpidem Tartrate 10 mg PO BEDTIME 04/16/20 [History] oxyCODONE 5 mg PO Q6H 04/16/20 [History] oxyCODONE 15 mg PO BID PRN 04/16/20 [History] Cefdinir 300 mg PO Q12HR #14 capsule 04/20/21 [Rx] Past Medical History HEENT History: Reports: Other (See Below) Other HEENT History: wears glasses Cardiovascular History: Reports: Blood Clots/VTE/DVT Other Cardiovascular History: hx of DVT- PE (post-op back surgery in 2014) had filter placed in "abdomen" Respiratory History: Reports: Asthma Other Respiratory History: hx of asthma as a child- no inhaler Gastrointestinal History: Reports: GERD Other Gastrointestinal History: s/p umbilical hernia repair 2010 Genitourinary History: Reports: Urinary Incontinence Other Genitourinary History: patient does self catheterization every 4-5 hours Musculoskeletal History: Reports: Back Pain, Chronic Other Musculoskeletal History: 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 Neurological History: Reports: Other (See Below) Other Neuro History: 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 Psychiatric History: Reports: Anxiety, Depression Other Psychiatric History: taking Cymbalta and Lorazepam Hematologic History: Reports: Anticoagulation Therapy, Blood Transfusion(s) Other Hematologic History: 2013 - Infectious Disease History Infectious Disease History: Reports: Chicken Pox - Past Surgical History Head Surgeries/Procedures: Reports: None Cardiovascular Surgical History: Reports: Vascular Surgery Other Cardiovascular Surgeries/Procedures: "filter " placed in "abdomen" becaused of DVT GI Surgical History: Reports: Hernia, Abdominal Other GI Surgeries/Procedures: hx of Umbilical hernia repair Neurological Surgical History: Reports: Other (See Below) Other Neurological Surgeries/Procedures: rods in back Other Musculoskeletal Surgeries/Procedures:: back surgery Social & Family History - Tobacco Use Tobacco Use Status *Q: Never Tobacco User - Caffeine Use Caffeine Use: Reports: Soda - Recreational Drug Use Recreational Drug Use: No ED ROS GENERAL - Review of Systems Review Of Systems: See Below ED EXAM, GENERAL - Physical Exam Exam: See Below #1 Interpretation EKG Interpretation Comments: EKG: As interpreted by ER physician: [place]: Nonspecific ST-T wave abnormalities Normal axis No evidence of ST elevation SD Normal sinus rhythm heart rate of 97 Course - Vital Signs Last Recorded V/S: Last Vital Signs Temp 98.5 F 04/23/21 09:47 Pulse 108 H 04/23/21 09:47 Resp BP 144/90 H 04/23/21 09:47 Pulse Ox 94 L 04/23/21 09:47 - Orders/Labs/Meds Orders: Active Orders 24 hr Category Date Time Status EKG Documentation Completion [RC] AM Care 04/23/21 09:49 Active Cervical Spine wo Cont [CT] Stat Exams 04/23/21 09:51 Taken Chest 1V Frontal [CR] Stat Exams 04/23/21 09:50 Taken Head wo Cont [CT] Stat Exams 04/23/21 09:51 Taken Sodium Chloride 0.9% [Saline Flush] Med 04/23/21 09:49 Active 10 ml FLUSH ASDIRECTED PRN Sodium Chloride 0.9% [Saline Flush] Med 04/23/21 09:49 Active 2.5 ml FLUSH ASDIRECTED PRN Saline Lock Insert [OM.PC] Stat Oth 04/23/21 09:49 Ordered Medication Orders Sodium Chloride (Sodium Chloride 0.9% 10 Ml Syringe) 10 ml FLUSH ASDIRECTED PRN PRN Reason: Keep Vein Open Last Admin: 04/23/21 10:11 Dose: 10 ml Documented by: ALLISON Sodium Chloride (Sodium Chloride 0.9% 2.5 Ml Syringe) 2.5 ml FLUSH ASDIRECTED PRN PRN Reason: Keep Vein Open Last Admin: 04/23/21 10:11 Dose: 2.5 ml Documented by: ALLISON Labs: Laboratory Tests 04/23/21 04/23/21 04/23/21 Range/Units 09:45 09:45 09:45 WBC 7.66 (4.0-11.0) K/uL RBC 5.56 (4.50-5.90) M/uL Hgb 16.5 (13.0-17.0) g/dL Hct 49.5 (38.0-50.0) % MCV 89.0 (80.0-98.0) fL MCH 29.7 (27.0-32.0) pg MCHC 33.3 (31.0-37.0) g/dL RDW Std Deviation 47.3 (28.0-62.0) fl RDW Coeff of Emily 15 (11.0-15.0) % Plt Count 246 (150-400) K/uL MPV 10.40 (7.40-12.00) fL Neut % (Auto) 79.3 (48.0-80.0) % Lymph % (Auto) 15.5 L (16.0-40.0) % Brule % (Auto) 4.8 (0.0-15.0) % Eos % (Auto) 0.3 (0.0-7.0) % Baso % (Auto) 0.1 (0.0-1.5) % Neut # (Auto) 6.1 H (1.4-5.7) K/uL Lymph # (Auto) 1.2 (0.6-2.4) K/uL Brule # (Auto) 0.4 (0.0-0.8) K/uL Eos # (Auto) 0.0 (0.0-0.7) K/uL Baso # (Auto) 0.0 (0.0-0.1) K/uL Nucleated RBC % 0.0 /100WBC Nucleated RBCs # 0 K/uL INR 1.68 Sodium 140 (136-148) mmol/L Potassium 3.6 (3.5-5.1) mmol/L Chloride 104 (98-107) mmol/L Carbon Dioxide 27.8 (21.0-32.0) mmol/L BUN 13 (7.0-18.0) mg/dL Creatinine 0.7 L (0.8-1.3) mg/dL Est Cr Clr Drug Dosing 111.53 mL/min Estimated GFR (MDRD) > 60.0 ml/min Glucose 144 H (74-106) mg/dL Calcium 8.7 (8.5-10.1) mg/dL Total Bilirubin 0.5 (0.2-1.0) mg/dL AST 19 (15-37) IU/L ALT 22 (14-63) IU/L Alkaline Phosphatase 113 (46-116) U/L Troponin I < 0.050 (0.000-0.056) ng/mL Total Protein 7.2 (6.4-8.2) g/dL Albumin 3.5 (3.4-5.0) g/dL Globulin 3.7 (2.6-4.0) g/dL Albumin/Globulin Ratio 0.9 (0.9-1.6) Urine Color Urine Appearance Urine pH (5.0-8.0) Ur Specific [place] (1.001-1.035) Urine Protein (NEGATIVE) mg/dL Urine Glucose (UA) (NEGATIVE) mg/dL Urine Ketones (NEGATIVE) mg/dL Urine Occult Blood (NEGATIVE) Urine Nitrite (NEGATIVE) Urine Bilirubin (NEGATIVE) Urine Urobilinogen (<2.0) EU/dL Ur Leukocyte Esterase (NEGATIVE) Urine RBC (0-2/HPF) Urine WBC (0-5/HPF) Ur Epithelial Cells (NONE-FEW) Urine Bacteria (NEGATIVE) Urine Mucus (NONE-MOD) 04/23/21 Range/Units 10:14 WBC (4.0-11.0) K/uL RBC (4.50-5.90) M/uL Hgb (13.0-17.0) g/dL Hct (38.0-50.0) % MCV (80.0-98.0) fL MCH (27.0-32.0) pg MCHC (31.0-37.0) g/dL RDW Std Deviation (28.0-62.0) fl RDW Coeff of Emily (11.0-15.0) % Plt Count (150-400) K/uL MPV (7.40-12.00) fL Neut % (Auto) (48.0-80.0) % Lymph % (Auto) (16.0-40.0) % Brule % (Auto) (0.0-15.0) % Eos % (Auto) (0.0-7.0) % Baso % (Auto) (0.0-1.5) % Neut # (Auto) (1.4-5.7) K/uL Lymph # (Auto) (0.6-2.4) K/uL Brule # (Auto) (0.0-0.8) K/uL Eos # (Auto) (0.0-0.7) K/uL Baso # (Auto) (0.0-0.1) K/uL Nucleated RBC % /100WBC Nucleated RBCs # K/uL INR Sodium (136-148) mmol/L Potassium (3.5-5.1) mmol/L Chloride (98-107) mmol/L Carbon Dioxide (21.0-32.0) mmol/L BUN (7.0-18.0) mg/dL Creatinine (0.8-1.3) mg/dL Est Cr Clr Drug Dosing mL/min Estimated GFR (MDRD) ml/min Glucose (74-106) mg/dL Calcium (8.5-10.1) mg/dL Total Bilirubin (0.2-1.0) mg/dL AST (15-37) IU/L ALT (14-63) IU/L Alkaline Phosphatase (46-116) U/L Troponin I (0.000-0.056) ng/mL Total Protein (6.4-8.2) g/dL Albumin (3.4-5.0) g/dL Globulin (2.6-4.0) g/dL Albumin/Globulin Ratio (0.9-1.6) Urine Color YELLOW Urine Appearance SLT CLOUDY Urine pH 6.0 (5.0-8.0) Ur Specific [place] >= 1.030 (1.001-1.035) Urine Protein 30 H (NEGATIVE) mg/dL Urine Glucose (UA) NEGATIVE (NEGATIVE) mg/dL Urine Ketones TRACE H (NEGATIVE) mg/dL Urine Occult Blood MODERATE H (NEGATIVE) Urine Nitrite POSITIVE H (NEGATIVE) Urine Bilirubin NEGATIVE (NEGATIVE) Urine Urobilinogen 1.0 (<2.0) EU/dL Ur Leukocyte Esterase SMALL H (NEGATIVE) Urine RBC 5-7 (0-2/HPF) Urine WBC 2-3 (0-5/HPF) Ur Epithelial Cells FEW (NONE-FEW) Urine Bacteria FEW (NEGATIVE) Urine Mucus LIGHT (NONE-MOD) Meds: Medications Generic Name Dose Route Start Last Admin Trade Name Frecarmen PRN Reason Stop Dose Admin Sodium Chloride 10 ml 04/23/21 09:49 04/23/21 10:11 Sodium Chloride 0.9% 10 Ml Syringe FLUSH 10 ml ASDIRECTED PRN Administration Keep Vein Open Sodium Chloride 2.5 ml 04/23/21 09:49 04/23/21 10:11 Sodium Chloride 0.9% 2.5 Ml Syringe FLUSH 2.5 ml ASDIRECTED PRN Administration Keep Vein Open Discontinued Medications Generic Name Dose Route Start Last Admin Trade Name Freq PRN Reason Stop Dose Admin Sodium Chloride 1,000 mls @ 999 mls/hr 04/23/21 09:49 04/23/21 10:11 Normal Saline IV 04/23/21 10:49 999 mls/hr .Bolus ONE Administration Departure - Departure Time of Disposition: 11:31 Disposition: Home, Self-Care 01 Condition: Good Clinical Impression: Confusion, Medication adverse effect - Discharge Information Additional Instructions: You were seen and evaluated in the ER today secondary to increased confusion this morning. At this time, it appears that you are back to your normal mental status. I strongly believe that the cause of your symptoms in the morning are medication induced. I would highly recommend stopping the Ambien immediately for nighttime use. Please talk to your doctor if you have any concerns regarding doing so. I would also recommend that you make an appointment see your family doctor along with your so that he can discuss options for your care as an outpatient. Please return to the ER if you have any new or concerning symptoms. The following information is given to patients seen in the emergency department who are being discharged to home. This information is to outline your options for follow-up care. We provide all patients seen in our emergency department with a follow-up referral. The need for follow-up, as well as the timing and circumstances, are variable depending upon the specifics of your emergency department visit. If you don't have a primary care physician on staff, we will provide you with a referral. We always advise you to contact your personal physician following an emergency department visit to inform them of the circumstance of the visit and for follow-up with them and/or the need for any referrals to a consulting specialist. The emergency department will also refer you to a specialist when appropriate. This referral assures that you have the opportunity for follow-up care with a specialist. All of these measure are taken in an effort to provide you with optimal care, which includes your follow-up. Under all circumstances we always encourage you to contact your private physician who remains a resource for coordinating your care. When calling for follow-up care, please make the office aware that this follow-up is from your recent emergency room visit. If for any reason you are refused follow-up, please contact the [facility] Emergency Department at and asked to speak to the emergency department charge nurse. [facility] - Primary Care [address] [place] [id number] [address] [address] Sepsis Event Note (ED) - Evaluation Sepsis Screening Result: No Definite Risk - Focused Exam Vital Signs: Vital Signs Temp Pulse BP Pulse Ox 04/23/21 09:47 98.5 F 108 H 144/90 H 94 L - My Orders Last 24 Hours: My Active Orders 04/23/21 09:49 EKG Documentation Completion [RC] AM Sodium Chloride 0.9% [Saline Flush] 10 ml FLUSH ASDIRECTED PRN Sodium Chloride 0.9% [Saline Flush] 2.5 ml FLUSH ASDIRECTED PRN Saline Lock Insert [OM.PC] Stat 04/23/21 09:50 Chest 1V Frontal [CR] Stat 04/23/21 09:51 Cervical Spine wo Cont [CT] Stat Head wo Cont [CT] Stat - Assessment/Plan Last 24 Hours: My Active Orders 04/23/21 09:49 EKG Documentation Completion [RC] AM Sodium Chloride 0.9% [Saline Flush] 10 ml FLUSH ASDIRECTED PRN Sodium Chloride 0.9% [Saline Flush] 2.5 ml FLUSH ASDIRECTED PRN Saline Lock Insert [OM.PC] Stat 04/23/21 09:50 Chest 1V Frontal [CR] Stat 04/23/21 09:51 Cervical Spine wo Cont [CT] Stat Head wo Cont [CT] Stat
--- NOTE | 2021-04-23 11:31 | CT ---
Indication: Fall confusion Technique: Noncontrast head CT Comparison: Head CT 04/20/2021 Findings: Axial noncontrast images through the brain parenchyma demonstrates no acute intracranial hemorrhage or mass no midline shift. No abnormal extra-axial air fluid collections. Small polyp or mucosal retention cyst right maxillary sinus and ethmoid air cells with mild mucosal thickening. No acute osseous abnormality. Impression: 1. No acute intracranial hemorrhage or mass. Please note that all CT scans at this facility use dose modulation, iterative reconstruction, and/or weight-based dosing when appropriate to reduce radiation dose to as low as reasonably achievable. Dictated by Dawna Penn MD @ 04/23/2021 11:30:[address] Dawna Penn @ Apr 23 2021 11:30AM
[2021-04-23 11:34] VITALS: BP 146/84; PULSE 74
--- NOTE | 2021-04-23 11:36 | CT ---
Indication: Fall Technique: Cervical spine CT scan Comparison: Cervical spine CT 04/20/2021 Findings: Normal height and alignment of the cervical vertebral bodies normal alignment of the lateral masses of C1 with the articular processes of C2. There is no acute fracture. The prevertebral soft tissues are within normal limits. Impression: No acute fracture traumatic malalignment. Please note that all CT scans at this facility use dose modulation, iterative reconstruction, and/or weight-based dosing when appropriate to reduce radiation dose to as low as reasonably achievable. Dictated by Dawna Penn MD @ 04/23/2021 11:35:[address] Dawna Penn @ Apr 23 2021 11:35AM
--- NOTE | 2021-04-23 11:36 | CR ---
INDICATION: Fall. COMPARISON: Chest x-ray dated 20 April 2021. FINDINGS: A single portable chest x-ray shows normal cardiac silhouette. The lungs show mild left basilar atelectasis. Sharp pleural margins. No pneumothorax. Stabilization hardware in the thoracic spine. IMPRESSION: 1. Mild left basilar atelectasis. No other focal pulmonary opacities. Dictated by Layton Penn MD @ 04/23/2021 11:34:[address] Layton Penn @ Apr 23 2021 11:34AM
== END 2021-04-23 12:01 | disposition home or self-care (01) ==
LOC: MW.ED 09:38
DX: R41.0 Disorientation, unspecified (principal); T50.905A Adverse effect of unspecified drugs, medicaments and biological substances, initial encounter; K21.9 Gastro-esophageal reflux disease without esophagitis; Z79.899 Other long term (current) drug therapy; Z88.0 Allergy status to penicillin
CPT/HCPCS: 70450; 71045; 72125; 80053; 81001; 84484; 85025; 85610; 93005; 99285; J7030

== ENCOUNTER 2021-07-22 17:18 | Emergency (ER) | payer BC ==
--- NOTE | 2021-07-22 17:54 | PCM.EKG ---
#1 Interpretation EKG Date: 07/22/21 Time: 17:27 Rhythm: NSR Rate (Beats/Min): 80 [place]: Normal P-Wave: Present QRS: Normal ST-T: Normal QT: Normal Comparison: No Change (04/23/21) EKG Interpretation Comments: Sinus Rhythm
[2021-07-22 18:55] LABS: ACETAMINOPHEN <2.0 ug/mL; BLOOD UREA NITROGEN,BUN 12 mg/dL (7.0-18.0); CARBON DIOXIDE,CO2 33.1 mmol/L (21.0-32.0); CHLORIDE,CL 101 mmol/L (98-107); GLUCOSE RANDOM 104 mg/dL (74-106); POTASSIUM,K 4.1 mmol/L (3.5-5.1); SODIUM,NA 141 mmol/L (136-148)
--- NOTE | 2021-07-22 19:14 | EDM.PDOC ---
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 Per EMS the patient is at his baseline and his called because she thought the patient was hallucinating. The patient states that he is not getting any symptoms currently. He denies any fever, chills, chest pain, shortness of breath, abdominal pain, nausea or vomiting. He denies any headache. He states that his called because she wanted him to get his bag changed. He states that he did change tonight but there is no complications that he can identify REVIEW OF SYSTEMS: Constitutional: Denies fever, chills. Eyes: Denies eye pain Ears, Nose, Mouth, & Throat: Denies earache Cardiovascular: Denies chest pain Respiratory: Denies shortness of breath Gastrointestinal: Denies Nausea, vomiting, diarrhea, hematochezia. Genitourinary: Denies hematuria Skin:Denies a rash MSK: Denies joint pain Neurological: Denies blurred vision Psychiatric: Denies depression PAST MEDICAL HISTORY: As per history of present illness and as reviewed below otherwise noncontributory. SURGICAL HISTORY: As per history of present illness and as reviewed below otherwise noncontributory. SOCIAL HISTORY: As per history of present illness and as reviewed below otherwise noncontributory. FAMILY HISTORY: As per history of present illness and as reviewed below otherwise noncontributory. EXAMINATION OF ORGAN SYSTEMS/BODY AREAS: Constitutional: Blood pressure was 130/64, heart rate 78, respiratory rate 16 and oxygen saturation of 93 to 95% on room air. Temperature 37.2 General: Well-appearing man who is in no acute distress. Psychiatric: Appropriate mood and affect. Eyes: No scleral icterus or conjunctival erythema ENMT: Moist mucous membranes. No pharyngeal erythema Cardiovascular: Regular, rate, and rhythm. No gallops, murmurs, or rubs. Bilateral upper extremity pulses symmetric and intact. No peripheral edema. No JVD. Respiratory: Lungs clear to auscultation bilaterally. No wheezes, rales, or rhonchi. Gastrointestinal: Soft, non-tender, non-distended. Normoactive bowel sounds Genitourinary: No suprapubic tenderness Musculoskeletal: No obvious deformity. Skin: No lesions or abrasions. Neurological: Alert and oriented x4. GCS of 15. Facies are symmetric. No slurring of age. Upper extremities strength 5 out of 5 sensation intact. MEDICAL DECISION MAKING AND COURSE IN THE ED WITH INTERPRETATION/REVIEW OF DIAGNOSTIC STUDIES: This is a 64-year-old man with a complex past history comes to the emergency department with a chief complaint of altered mental status currently and oriented x3 and has no concerns at this time. The patient's vitals are completely within normal limits. At this time we will obtain screening labs including CBC, CMP and INR, serum drug screen. I reviewed the patient's chart it appears the patient has been evaluated for similar symptoms in the past. The patient does have capacity for medical decision making and competency here in the ED. I do believe the patient is stable for discharge if his work-up is completely normal. He was amenable to this plan. I did offer obtaining a CT head without contrast however given no encephalopathy in the emergency department he does not want a head CT. Laboratory: CBC is unremarkable. INR is normal. CMP is unremarkable. Troponin is negative. TSH is normal. Serum drug screen is negative. The patient continued to remain stable and had no encephalopathy while in the emergency department. It appears that the patient is at his baseline. Therefore at this time the patient was requesting to be discharged. I do believe the patient is stable for discharge. His was contacted and the patient was discharged in stable condition. He is to return for any new or worsening symptoms. DISPOSITION: The patient was discharged home in stable condition. The patient will follow up with primary care physician in 3 to 5 days CONDITION: Fair PROCEDURES: None FINAL IMPRESSION(S)/DIAGNOSES: 1. Acute encounter for medical screening examination Kan Phan M.D. - Related Data Allergies Allergy/AdvReac Type Severity Reaction Status Date / Time amoxicillin [From Augmentin] Allergy Cannot Verified 07/22/21 17:23 Remember clavulanic acid Allergy Cannot Verified 07/22/21 17:23 [From Augmentin] Remember Home Meds: Home Meds tiZANidine [Zanaflex] 4 mg PO QPM 11/21/14 [History] LORazepam 0.5 mg PO DAILY PRN 05/31/15 [History] Simvastatin [Zocor] 20 mg PO BEDTIME 05/31/15 [History] Tolterodine [Detrol LA 24 Hr] 4 mg PO DAILY 05/31/15 [History] polyethylene glycoL 3350 [Miralax] 17 gm PO DAILY PRN 12/28/19 [History] Mirtazapine 30 mg PO BEDTIME 04/16/20 [History] Solifenacin Succinate 10 mg PO DAILY 04/16/20 [History] Zolpidem Tartrate 10 mg PO BEDTIME PRN 04/16/20 [History] oxyCODONE 5 mg PO BID PRN 04/16/20 [History] ARIPiprazole [Abilify] 10 mg PO DAILY 04/23/21 [History] Omeprazole 20 mg PO ACBREAKFAST 04/23/21 [History] Pregabalin [Lyrica] 75 mg PO BID PRN 04/23/21 [History] Warfarin [Coumadin] 5 mg PO DAILY 04/23/21 [History] Past Medical History HEENT History: Reports: Other (See Below) Other HEENT History: wears glasses Cardiovascular History: Reports: Blood Clots/VTE/DVT Other Cardiovascular History: hx of DVT- PE (post-op back surgery in 2014) had filter placed in "abdomen" Respiratory History: Reports: Asthma Other Respiratory History: hx of asthma as a child- no inhaler Gastrointestinal History: Reports: GERD Other Gastrointestinal History: s/p umbilical hernia repair 2009 Genitourinary History: Reports: Urinary Incontinence Other Genitourinary History: patient does self catheterization every 4-5 hours Musculoskeletal History: Reports: Back Pain, Chronic Other Musculoskeletal History: 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 Neurological History: Reports: Other (See Below) Other Neuro History: 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 Psychiatric History: Reports: Anxiety, Depression Other Psychiatric History: taking Cymbalta and Lorazepam Hematologic History: Reports: Anticoagulation Therapy, Blood Transfusion(s) Other Hematologic History: 2014 - Infectious Disease History Infectious Disease History: Reports: Chicken Pox - Past Surgical History Head Surgeries/Procedures: Reports: None Cardiovascular Surgical History: Reports: Vascular Surgery Other Cardiovascular Surgeries/Procedures: "filter " placed in "abdomen" becaused of DVT GI Surgical History: Reports: Hernia, Abdominal Other GI Surgeries/Procedures: hx of Umbilical hernia repair Neurological Surgical History: Reports: Other (See Below) Other Neurological Surgeries/Procedures: rods in back Other Musculoskeletal Surgeries/Procedures:: back surgery Social & Family History - Tobacco Use Tobacco Use Status *Q: Never Tobacco User - Caffeine Use Caffeine Use: Reports: Soda - Recreational Drug Use Recreational Drug Use: No ED ROS GENERAL - Review of Systems Review Of Systems: See Below ED EXAM, GENERAL - Physical Exam Exam: See Below Course - Vital Signs Last Recorded V/S: Last Vital Signs Temp 36.2 C 07/22/21 19:17 Pulse 62 07/22/21 19:17 Resp 16 07/22/21 19:17 BP 123/62 07/22/21 19:17 Pulse Ox 95 07/22/21 19:17 - Orders/Labs/Meds Labs: Laboratory Tests 07/22/21 07/22/21 07/22/21 Range/Units 18:14 18:14 18:14 WBC 9.08 (4.0-11.0) K/uL RBC 5.37 (4.50-5.90) M/uL Hgb 16.0 (13.0-17.0) g/dL Hct 48.2 (38.0-50.0) % MCV 89.8 (80.0-98.0) fL MCH 29.8 (27.0-32.0) pg MCHC 33.2 (31.0-37.0) g/dL RDW Std Deviation 45.2 (28.0-62.0) fl RDW Coeff of Emily 14 (11.0-15.0) % Plt Count 217 (150-400) K/uL MPV 10.10 (7.40-12.00) fL Neut % (Auto) 82.8 H (48.0-80.0) % Lymph % (Auto) 10.0 L (16.0-40.0) % Tama % (Auto) 6.6 (0.0-15.0) % Eos % (Auto) 0.4 (0.0-7.0) % Baso % (Auto) 0.2 (0.0-1.5) % Neut # (Auto) 7.5 H (1.4-5.7) K/uL Lymph # (Auto) 0.9 (0.6-2.4) K/uL Tama # (Auto) 0.6 (0.0-0.8) K/uL Eos # (Auto) 0.0 (0.0-0.7) K/uL Baso # (Auto) 0.0 (0.0-0.1) K/uL Nucleated RBC % 0.0 /100WBC Nucleated RBCs # 0 K/uL INR 1.40 Sodium 141 (136-148) mmol/L Potassium 4.1 (3.5-5.1) mmol/L Chloride 101 (98-107) mmol/L Carbon Dioxide 33.1 H (21.0-32.0) mmol/L BUN 12 (7.0-18.0) mg/dL Creatinine 0.7 L (0.8-1.3) mg/dL Est Cr Clr Drug Dosing 115.04 mL/min Estimated GFR (MDRD) > 60.0 ml/min Glucose 104 (74-106) mg/dL Lactic Acid (0.4-2.0) mmol/L Calcium 8.7 (8.5-10.1) mg/dL Magnesium 2.1 (1.8-2.4) mg/dL Total Bilirubin 0.3 (0.2-1.0) mg/dL AST 19 (15-37) IU/L ALT 22 (14-63) IU/L Alkaline Phosphatase 104 (46-116) U/L Ammonia (19-54) ug/dL Creatine Kinase 140 (26-308) U/L Troponin I < 0.050 (0.000-0.056) ng/mL Total Protein 7.0 (6.4-8.2) g/dL Albumin 3.6 (3.4-5.0) g/dL Globulin 3.4 (2.6-4.0) g/dL Albumin/Globulin Ratio 1.1 (0.9-1.6) TSH, Ultra Sensitive 2.09 (0.36-3.74) uIU/mL Salicylates 0.9 (0-20) mg/dL Acetaminophen <2.0 ug/mL Ethyl Alcohol < 3.0 mg/dL 07/22/21 07/22/21 Range/Units 18:14 18:14 WBC (4.0-11.0) K/uL RBC (4.50-5.90) M/uL Hgb (13.0-17.0) g/dL Hct (38.0-50.0) % MCV (80.0-98.0) fL MCH (27.0-32.0) pg MCHC (31.0-37.0) g/dL RDW Std Deviation (28.0-62.0) fl RDW Coeff of Emily (11.0-15.0) % Plt Count (150-400) K/uL MPV (7.40-12.00) fL Neut % (Auto) (48.0-80.0) % Lymph % (Auto) (16.0-40.0) % Tama % (Auto) (0.0-15.0) % Eos % (Auto) (0.0-7.0) % Baso % (Auto) (0.0-1.5) % Neut # (Auto) (1.4-5.7) K/uL Lymph # (Auto) (0.6-2.4) K/uL Tama # (Auto) (0.0-0.8) K/uL Eos # (Auto) (0.0-0.7) K/uL Baso # (Auto) (0.0-0.1) K/uL Nucleated RBC % /100WBC Nucleated RBCs # K/uL INR Sodium (136-148) mmol/L Potassium (3.5-5.1) mmol/L Chloride (98-107) mmol/L Carbon Dioxide (21.0-32.0) mmol/L BUN (7.0-18.0) mg/dL Creatinine (0.8-1.3) mg/dL Est Cr Clr Drug Dosing mL/min Estimated GFR (MDRD) ml/min Glucose (74-106) mg/dL Lactic Acid 1.3 (0.4-2.0) mmol/L Calcium (8.5-10.1) mg/dL Magnesium (1.8-2.4) mg/dL Total Bilirubin (0.2-1.0) mg/dL AST (15-37) IU/L ALT (14-63) IU/L Alkaline Phosphatase (46-116) U/L Ammonia 27 (19-54) ug/dL Creatine Kinase (26-308) U/L Troponin I (0.000-0.056) ng/mL Total Protein (6.4-8.2) g/dL Albumin (3.4-5.0) g/dL Globulin (2.6-4.0) g/dL Albumin/Globulin Ratio (0.9-1.6) TSH, Ultra Sensitive (0.36-3.74) uIU/mL Salicylates (0-20) mg/dL Acetaminophen ug/mL Ethyl Alcohol mg/dL Departure - Departure Time of Disposition: 19:17 Disposition: Home, Self-Care 01 Condition: Good Clinical Impression: Encounter for medical screening examination - Discharge Information *PRESCRIPTION DRUG MONITORING PROGRAM REVIEWED*: No *COPY OF PRESCRIPTION DRUG MONITORING REPORT IN PATIENT BINDU: No Instructions: Medical Screening Exam Referrals: PCP,None [Primary Care Provider] - Forms: ED Department Discharge Additional Instructions: Your evaluated today on an emergent basis. At this time all of your labs are within normal limits and you are alert and oriented x4 and have the capacity to make your own decision. I recommend you follow-up with your primary care physician for reevaluation in 1 to 3 days. [facility] - Primary Care [address] [place] [address] [place] [address] The patient is informed of any results of their evaluation and diagnostic workup and all questions are answered. They are given discharge instructions and return precautions. The patient is stable for discharge. The patient states they understand and agree with the plan and that they will return if their symptoms get worse or if they have any new concerns. The following information is given to patients seen in the emergency department who are being discharged to home. This information is to outline your options for follow-up care. We provide all patients seen in our emergency department with a follow-up referral. The need for follow-up, as well as the timing and circumstances, are variable depending upon the specifics of your emergency department visit. If you don't have a primary care physician on staff, we will provide you with a referral. We always advise you to contact your personal physician following an emergency department visit to inform them of the circumstance of the visit and for follow-up with them and/or the need for any referrals to a consulting specialist. The emergency department will also refer you to a specialist when appropriate. This referral assures that you have the opportunity for follow-up care with a specialist. All of these measure are taken in an effort to provide you with optimal care, which includes your follow-up. Under all circumstances we always encourage you to contact your private physician who remains a resource for coordinating your care. When calling for follow-up care, please make the office aware that this follow-up is from your recent emergency room visit. If for any reason you are refused follow-up, please contact the [facility] Emergency Department at and asked to speak to the emergency department charge nurse. Sepsis Event Note (ED) - Evaluation Sepsis Screening Result: No Definite Risk
[2021-07-22 19:18] VITALS: BP 123/62; PULSE 62
== END 2021-07-22 22:11 | disposition home or self-care (01) ==
LOC: MW.ED 17:18
DX: Z02.89 Encounter for other administrative examinations (principal); K21.9 Gastro-esophageal reflux disease without esophagitis; Z88.0 Allergy status to penicillin; Z79.01 Long term (current) use of anticoagulants; Z79.899 Other long term (current) drug therapy; Z86.718 Personal history of other venous thrombosis and embolism
CPT/HCPCS: 36415; 80053; 80143; 80179; 80307; 82140; 82550; 83605; 83735; 84443; 84484; 85025; 85610; 93005; 99285-25

== ENCOUNTER 2021-08-19 16:47 | Emergency (ER) | payer BC ==
--- NOTE | 2021-08-19 17:30 | EDM.PDOC ---
ED HPI GENERAL MEDICAL PROBLEM - General Chief Complaint: General Stated Complaint: MENTAL HEALTH Time Seen by Provider: 08/19/21 17:25 Source of Information: Reports: Patient History Limitations: Reports: No Limitations - History of Present Illness INITIAL COMMENTS - FREE TEXT/NARRATIVE: HISTORY AND PHYSICAL: History of present illness: Patient is a 65-year-old male who presents emergency room today via EMS with concern that his leg bag had broken. Patient has an indwelling catheter secondary to urinary retention. Patient states that he took his wheelchair out for a ride as the weather was nicer today and also states that his got upset at him for doing this and was thinking that he was hearing voices. Patient states that he thought he had broke the strap of his leg bag so shouted out to his who called EMS. Patient states that EMS was able to fix the leg bag so he feels silly for being here and is requesting to leave the emergency room. Patient denies any homicidal or suicidal ideation. Patient denies any auditory or visual hallucinations. Patient denies fever, chills, chest pain, shortness of breath, or cough. Denies headache, neck stiff ness, change in vision, syncope, or near syncope. Denies nausea, vomiting, abdominal pain, diarrhea, constipation, or dysuria. Has not noted any blood in urine or stool. Patient has been eating and drinking appropriately. Review of systems: As per history of present illness and below otherwise all systems reviewed and negative. Past medical history: As per history of present illness and as reviewed below otherwise noncontributory. Surgical history: As per history of present illness and as reviewed below otherwise noncontributory. Social history: See social history for further information Family history: As per history of present illness and as reviewed below otherwise noncontributory. Physical exam: General: Patient is alert, oriented, and in no acute distress. Patient sitting comfortably on exam table. Vitals stable and reviewed by me. HEENT: Atraumatic, normocephalic, pupils equal and reactive bilaterally, negative for conjunctival pallor or scleral icterus, mucous membranes moist, throat clear, neck supple, nontender, trachea midline. No drooling or trismus noted. No meningeal signs. No hot potato voice noted. Lungs: Clear to auscultation, breath sounds equal bilaterally, chest nontender. Heart: S1S2, regular rate and rhythm without overt murmur Abdomen: Soft, nondistended, nontender. Negative for masses or hepatosplenomegaly. Negative for costovertebral tenderness. Pelvis: Stable nontender. Genitourinary: Deferred. Rectal: Deferred. Skin: Intact, warm, dry. No lesions or rashes noted. Extremities: Intact leg bag with noted urine drainage. Otherwise, atraumatic, negative for cords or calf pain. Neurovascular unremarkable. Neuro: Awake, alert, oriented. Cranial nerves II through XII unremarkable. Cerebellum unremarkable. Motor and sensory unremarkable throughout. Exam nonfocal. Medical Decision Making: Patient is a 65-year-old male who presents emergency room today via EMS with concern of a possible broken leg bag strap and his thinking that he was h allucinating since he decided to go for a ride in his wheelchair today. Upon arrival to the ED, patient is vitally stable and well-appearing on exam. Patient is alert and oriented to person place and time and is not having any acute psychosis on exam. Patient denies homicidal or suicidal ideation and is requesting to leave the emergency room. Strict return precautions thoroughly discussed with patient. Discussed importance for follow-up with a primary care provider. Voices understanding and is agreeable to plan of care. Denies any further questions or concerns at this time. Diagnostics: None Therapeutics: None Prescription: None Impression: Medical screening exam Plan: 1. Follow-up with a primary care provider as discussed. Return to the ED as needed and as discussed. Definitive disposition and diagnosis as appropriate pending reevaluation and review of above. - Related Data Allergies Allergy/AdvReac Type Severity Reaction Status Date / Time amoxicillin [From Augmentin] Allergy Cannot Verified 07/22/21 17:23 Remember clavulanic acid Allergy Cannot Verified 07/22/21 17:23 [From Augmentin] Remember Home Meds: Home Meds tiZANidine [Zanaflex] 4 mg PO QPM 11/21/14 [History] LORazepam 0.5 mg PO DAILY PRN 05/31/15 [History] Simvastatin [Zocor] 20 mg PO BEDTIME 05/31/15 [History] Tolterodine [Detrol LA 24 Hr] 4 mg PO DAILY 05/31/15 [History] polyethylene glycoL 3350 [Miralax] 17 gm PO DAILY PRN 12/28/19 [History] Mirtazapine 30 mg PO BEDTIME 04/16/20 [History] Solifenacin Succinate 10 mg PO DAILY 04/16/20 [History] Zolpidem Tartrate 10 mg PO BEDTIME PRN 04/16/20 [History] oxyCODONE 5 mg PO BID PRN 04/16/20 [History] ARIPiprazole [Abilify] 10 mg PO DAILY 04/23/21 [History] Omeprazole 20 mg PO ACBREAKFAST 04/23/21 [History] Pregabalin [Lyrica] 75 mg PO BID PRN 04/23/21 [History] Warfarin [Coumadin] 5 mg PO DAILY 04/23/21 [History] Past Medical History HEENT History: Reports: Other (See Below) Other HEENT History: wears glasses Cardiovascular History: Reports: Blood Clots/VTE/DVT Other Cardiovascular History: hx of DVT- PE (post-op back surgery in 2014) had filter placed in "abdomen" Respiratory History: Reports: Asthma Other Respiratory History: hx of asthma as a child- no inhaler Gastrointestinal History: Reports: GERD Other Gastrointestinal History: s/p umbilical hernia repair 2009 Genitourinary History: Reports: Urinary Incontinence Other Genitourinary History: patient does self catheterization every 4-5 hours Musculoskeletal History: Reports: Back Pain, Chronic Other Musculoskeletal History: 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 Neurological History: Reports: Other (See Below) Other Neuro History: 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 Psychiatric History: Reports: Anxiety, Depression Other Psychiatric History: taking Cymbalta and Lorazepam Hematologic History: Reports: Anticoagulation Therapy, Blood Transfusion(s) Other Hematologic History: 2013 - Infectious Disease History Infectious Disease History: Reports: Chicken Pox - Past Surgical History Head Surgeries/Procedures: Reports: None Cardiovascular Surgical History: Reports: Vascular Surgery Other Cardiovascular Surgeries/Procedures: "filter " placed in "abdomen" becaused of DVT GI Surgical History: Reports: Hernia, Abdominal Other GI Surgeries/Procedures: hx of Umbilical hernia repair Neurological Surgical History: Reports: Other (See Below) Other Neurological Surgeries/Procedures: rods in back Other Musculoskeletal Surgeries/Procedures:: back surgery Social & Family History - Caffeine Use Caffeine Use: Reports: Soda ED ROS GENERAL - Review of Systems Review Of Systems: Comprehensive ROS is negative, except as noted in HPI. ED EXAM, GENERAL - Physical Exam Exam: See Below (see dictation) Course - Vital Signs Last Recorded V/S: Last Vital Signs Temp 98.7 F 08/19/21 16:51 Pulse 88 08/19/21 17:36 Resp 20 08/19/21 17:36 BP 127/83 08/19/21 17:36 Pulse Ox 92 L 08/19/21 17:36 Departure - Departure Time of Disposition: 17:30 Disposition: Home, Self-Care 01 Clinical Impression: Encounter for medical screening examination - Discharge Information Instructions: Medical Screening Exam Referrals: PCP,None [Primary Care Provider] - Forms: ED Department Discharge Additional Instructions: The following information is given to patients seen in the emergency department who are being discharged to home. This information is to outline your options for follow-up care. We provide all patients seen in our emergency department wi th a follow-up referral. The need for follow-up, as well as the timing and circumstances, are variable depending upon the specifics of your emergency department visit. If you don't have a primary care physician on staff, we will provide you with a referral. We always advise you to contact your personal physician following an emergency department visit to inform them of the circumstance of the visit and for follow-up with them and/or the need for any referrals to a consulting specialist. The emergency department will also refer you to a specialist when appropriate. This referral assures that you have the opportunity for follow-up care with a specialist. All of these measure are taken in an effort to provide you with optimal care, which includes your follow-up. Under all circumstances we always encourage you to contact your private physician who remains a resource for coordinating your care. When calling for follow-up care, please make the office aware that this follow-up is from your recent emergency room visit. If for any reason you are refused follow-up, please contact the [facility] Emergency Department at and asked to speak to the emergency department charge nurse. [facility] [address] [place] [address] [id number] [address] [address] 1. Follow-up with a primary care provider as discussed. Return to the ED as ne eded and as discussed. Sepsis Event Note (ED) - Evaluation Sepsis Screening Result: No Definite Risk - Focused Exam Vital Signs: Vital Signs Temp Pulse Resp BP Pulse Ox 08/19/21 17:36 88 20 127/83 92 L 08/19/21 16:51 98.7 F 109 H 18 117/81 94 L
[2021-08-19 17:37] VITALS: BP 127/83; PULSE 88
== END 2021-08-19 17:37 | disposition home or self-care (01) ==
LOC: MW.ED 16:47
DX: Z02.89 Encounter for other administrative examinations (principal); K21.9 Gastro-esophageal reflux disease without esophagitis; Z86.718 Personal history of other venous thrombosis and embolism; Z88.0 Allergy status to penicillin; Z79.01 Long term (current) use of anticoagulants; Z79.899 Other long term (current) drug therapy
CPT/HCPCS: 99283

== ENCOUNTER 2021-08-31 11:49 | Emergency (ER) | payer BC ==
--- NOTE | 2021-08-31 11:59 | EDM.PDOCBH ---
ED HPI GENERAL MEDICAL PROBLEM - General Stated Complaint: EMS Time Seen by Provider: 08/31/21 11:51 Source of Information: Reports: Patient, EMS History Limitations: Reports: No Limitations - Related Data Allergies Allergy/AdvReac Type Severity Reaction Status Date / Time amoxicillin [From Augmentin] Allergy Cannot Verified 07/22/21 17:23 Remember clavulanic acid Allergy Cannot Verified 07/22/21 17:23 [From Augmentin] Remember Home Meds: Home Meds tiZANidine [Zanaflex] 4 mg PO QPM 11/21/14 [History] LORazepam 0.5 mg PO DAILY PRN 05/31/15 [History] Simvastatin [Zocor] 20 mg PO BEDTIME 05/31/15 [History] Tolterodine [Detrol LA 24 Hr] 4 mg PO DAILY 05/31/15 [History] polyethylene glycoL 3350 [Miralax] 17 gm PO DAILY PRN 12/28/19 [History] Mirtazapine 30 mg PO BEDTIME 04/16/20 [History] Solifenacin Succinate 10 mg PO DAILY 04/16/20 [History] Zolpidem Tartrate 10 mg PO BEDTIME PRN 04/16/20 [History] oxyCODONE 5 mg PO BID PRN 04/16/20 [History] ARIPiprazole [Abilify] 10 mg PO DAILY 04/23/21 [History] Omeprazole 20 mg PO ACBREAKFAST 04/23/21 [History] Pregabalin [Lyrica] 75 mg PO BID PRN 04/23/21 [History] Warfarin [Coumadin] 5 mg PO DAILY 04/23/21 [History] Past Medical History HEENT History: Reports: Other (See Below) Other HEENT History: wears glasses Cardiovascular History: Reports: Blood Clots/VTE/DVT Other Cardiovascular History: hx of DVT- PE (post-op back surgery in 2014) had filter placed in "abdomen" Respiratory History: Reports: Asthma Other Respiratory History: hx of asthma as a child- no inhaler Gastrointestinal History: Reports: GERD Other Gastrointestinal History: s/p umbilical hernia repair 2009 Genitourinary History: Reports: Urinary Incontinence Other Genitourinary History: patient does self catheterization every 4-5 hours Musculoskeletal History: Reports: Back Pain, Chronic Other Musculoskeletal History: 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 Neurological History: Reports: Other (See Below) Other Neuro History: 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 Psychiatric History: Reports: Anxiety, Depression Other Psychiatric History: taking Cymbalta and Lorazepam Hematologic History: Reports: Anticoagulation Therapy, Blood Transfusion(s) Other Hematologic History: 2013 - Infectious Disease History Infectious Disease History: Reports: Chicken Pox - Past Surgical History Head Surgeries/Procedures: Reports: None Cardiovascular Surgical History: Reports: Vascular Surgery Other Cardiovascular Surgeries/Procedures: "filter " placed in "abdomen" becaused of DVT GI Surgical History: Reports: Hernia, Abdominal Other GI Surgeries/Procedures: hx of Umbilical hernia repair Neurological Surgical History: Reports: Other (See Below) Other Neurological Surgeries/Procedures: rods in back Other Musculoskeletal Surgeries/Procedures:: back surgery Social & Family History - Caffeine Use Caffeine Use: Reports: Soda
--- NOTE | 2021-08-31 12:23 | PCM.SN.2 ---
- Free Text/Narrative Note: Patient arrived to the emergency room by EMS after a behavioral outburst on the bus. Patient states he was having difficulty with his Childers catheter bag and was yelling. The regional owner operator truck driver called EMS for evaluation of the patient. EMS states they were able to calm him down with talking. Upon arrival the patient is calm, cooperative and states he does not need to be evaluated in the emergency room. Patient is exhibiting both competency as well as capacity for medical decision making. At this time, I do not have any reason to hold the patient against their will for evaluation. I will respect the patient's autonomy and will allow them to sign out without being seen. I discussed the patient's options of care. Patient understands that they may return to the emergency room if they change their mind and would like further care/treatment.
== END 2021-08-31 11:55 | disposition left against medical advice (07) ==
LOC: MW.ED 11:49
DX: Z53.21 Procedure and treatment not carried out due to patient leaving prior to being seen by health care provider (principal)

== ENCOUNTER 2021-09-26 12:29 | Emergency (ER) | payer BC ==
--- NOTE | 2021-09-26 12:33 | EDM.PDOC ---
ED HPI GENERAL MEDICAL PROBLEM - General Stated Complaint: THROAT PAIN Time Seen by Provider: 09/26/21 12:33 Source of Information: Reports: Patient History Limitations: Reports: No Limitations - History of Present Illness INITIAL COMMENTS - FREE TEXT/NARRATIVE: HISTORY AND PHYSICAL: History of present illness: Patient is a 65-year-old male who presents to the emergency room requesting ambulance transport to [place] in my night. Patient is tearful when speaking to him stating that he was upset that the EMS crew did not directly take him to [place] and instead brought him here to our emergency room for evaluation. While I am interviewing him he is drinking an orange Powerade but states he is having difficulty swallowing. I asked if he was eating his meals and taking his pills and he states he is although it is painful. He believes he needs to see an metal off bearer for further evaluation of the pain associated with swallowing. He states he refuses to see anyone here in [place] and if we are not going to transport him he wants to leave. Patient is a paraplegic secondary to a traumatic fall in 2013. Does have urinary retention, Childers catheter in place. History of depression, anxiety and behavioral issues. Patient denies any fever, chills, headache, change in vision, syncope or near syncope. Denies any chest pain, back pain, shortness of breath or cough. During my interview the patient is drinking and swallowing without any difficulty, he has clear speech and is not drooling. Denies any abdominal pain, nausea, vomiting, diarrhea, constipation or dysuria. Has not noted any blood in urine or stool. Patient has been eating and drinking appropriately. No recent travel or sick contacts. Review of systems: As per history of present illness and below otherwise all systems reviewed and negative. Past medical history: As per history of present illness and as reviewed below otherwise noncontributory. Surgical history: As per history of present illness and as reviewed below otherwise noncontributory. Social history: See social history for further information Family history: As per history of present illness and as reviewed below otherwise noncont ributory. Physical exam: General: Well developed and well nourished 65-year-old male. Alert and orientated x 3. Nontoxic in appearance and in no acute distress. Vital signs are stable and have been reviewed by me. Nursing notes were reviewed. HEENT: Atraumatic, normocephalic, pupils equal and reactive bilaterally, negative for conjunctival pallor or scleral icterus, mucous membranes moist, throat clear, neck supple, nontender, trachea midline. No drooling or trismus noted. No meningeal signs. No hot potato voice noted. Lungs: Clear to auscultation bilaterally. No wheezes, rales, or rhonchi. Chest nontender. Normal work of breathing, no accessory muscles used. Heart: S1S2, regular rate and rhythm without overt murmur, gallops, or rubs. No JVD. No peripheral edema Abdomen: Soft, nondistended, nontender. Normoactive bowel sounds. Negative for masses or costovertebral tenderness. Skin: Intact, warm, dry. No lesions or rashes noted. Hematologic: No petechiae or purpra. Mucosa appropriate color and normal nail bed color and refill. Extremities: Atraumatic, moves upper extremities without difficulty or deficits. Paraplegic wheelchair bound. Neurovascular unremarkable. Neuro: Awake, alert, oriented. Cranial nerves unremarkable, per patient. Cerebellum unremarkable. Motor and sensory unremarkable throughout, per patient norm. Exam nonfocal. Psychiatric: Mood and affect are appropriate. Normal thought process. Answering questions appropriately. Please note that the patient was seen and evaluated during the 2019 SARS-CoV-2 novel coronavirus pandemic period. Community viral transmission is ongoing at time of this encounter and the emergency department is operating under pandemic response procedures. Medical Decision Making: Patient is a 65-year-old male who presents to the emergency room requesting transport to [place] in my night for an ENT specialist. Upon arrival the patient is tearful and states that the ambulance crew was supposed to go straight to [place] in [place] and not stop here for evaluation. He states he cannot drive himself so he needs "somebody to take me". Upon my physical evaluation I note he is drinking Powerade without any difficulty, as I question if he is able to take his pills and eat he states yes but it is painful. He becomes frustrated when I talk about doing further evaluation/diagnostics. He is requesting to leave AGAINST MEDICAL ADVICE stating "if you are not going to take me I am going to call my to drive me then". Patient is vitally stable. Patient is alert, awake and oriented x3. Patient is exhibiting both competency as well as capacity for medical decision making. At this time, I do not have any reason to hold the patient against his will. I will respect the patient's autonomy and will allow them to sign out AGAINST MEDICAL ADVICE. I discussed the patient's options of care. Patient understands that they may return to the emergency room if they change their mind and would like further care/treatment. Diagnostics: Refuses Therapeutics: Refuses Prescription: None Impression: AGAINST MEDICAL ADVICE Sore throat Definitive disposition and diagnosis as appropriate pending reevaluation and review of above. Back Pain Score (Numeric/FACES): 5 - Related Data Allergies Allergy/AdvReac Type Severity Reaction Status Date / Time amoxicillin [From Augmentin] Allergy Cannot Verified 09/26/21 12:33 Remember clavulanic acid Allergy Cannot Verified 09/26/21 12:33 [From Augmentin] Remember Home Meds: Home Meds tiZANidine [Zanaflex] 4 mg PO QPM 11/21/14 [History] LORazepam 0.5 mg PO DAILY PRN 05/31/15 [History] Simvastatin [Zocor] 20 mg PO BEDTIME 05/31/15 [History] Mirtazapine 30 mg PO BEDTIME 04/16/20 [History] Omeprazole 20 mg PO ACBREAKFAST 04/23/21 [History] Warfarin [Coumadin] 5 mg PO DAILY 04/23/21 [History] Past Medical History HEENT History: Reports: Other (See Below) Other HEENT History: wears glasses Cardiovascular History: Reports: Blood Clots/VTE/DVT Other Cardiovascular History: hx of DVT- PE (post-op back surgery in 2014) had filter placed in "abdomen" Respiratory History: Reports: Asthma Other Respiratory History: hx of asthma as a child- no inhaler Gastrointestinal History: Reports: GERD Other Gastrointestinal History: s/p umbilical hernia repair 2009 Genitourinary History: Reports: Urinary Incontinence Other Genitourinary History: patient does self catheterization every 4-5 hours Musculoskeletal History: Reports: Back Pain, Chronic Other Musculoskeletal History: 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 Neurological History: Reports: Other (See Below) Other Neuro History: 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 Psychiatric History: Reports: Anxiety, Depression Other Psychiatric History: taking Cymbalta and Lorazepam Hematologic History: Reports: Anticoagulation Therapy, Blood Transfusion(s) Other Hematologic History: 2014 - Infectious Disease History Infectious Disease History: Reports: Chicken Pox - Past Surgical History Head Surgeries/Procedures: Reports: None Cardiovascular Surgical History: Reports: Vascular Surgery Other Cardiovascular Surgeries/Procedures: "filter " placed in "abdomen" becaused of DVT GI Surgical History: Reports: Hernia, Abdominal Other GI Surgeries/Procedures: hx of Umbilical hernia repair Neurological Surgical History: Reports: Other (See Below) Other Neurological Surgeries/Procedures: rods in back Other Musculoskeletal Surgeries/Procedures:: back surgery Social & Family History - Caffeine Use Caffeine Use: Reports: Soda ED ROS ENT - Review of Systems Review Of Systems: Comprehensive ROS is negative, except as noted in HPI. ED EXAM, ENT - Physical Exam Exam: See Below (See dictation) Course - Vital Signs Last Recorded V/S: Last Vital Signs Temp 96.7 F L 09/26/21 12:35 Pulse 94 09/26/21 12:35 Resp 16 09/26/21 12:35 BP 129/79 09/26/21 12:35 Pulse Ox 96 09/26/21 12:35 Departure - Departure Time of Disposition: 12:53 Disposition: Against Medical Advice 07 Clinical Impression: Left against medical advice, Sore throat - Discharge Information Sepsis Event Note (ED) - Focused Exam Vital Signs: Vital Signs Temp Pulse Resp BP Pulse Ox 09/26/21 12:35 96.7 F L 94 16 129/79 96
[2021-09-26 12:40] VITALS: BP 129/79; PULSE 94
== END 2021-09-26 13:24 | disposition left against medical advice (07) ==
LOC: MW.ED 12:29
DX: J02.9 Acute pharyngitis, unspecified (principal); K21.9 Gastro-esophageal reflux disease without esophagitis; Z88.0 Allergy status to penicillin; Z79.899 Other long term (current) drug therapy; Z79.01 Long term (current) use of anticoagulants; Z53.8 Procedure and treatment not carried out for other reasons
CPT/HCPCS: 99284

== ENCOUNTER 2021-10-22 00:30 | Emergency (ER) | payer BC ==
[2021-10-22] MEDS ORDERED: Sodium Chloride 0.9% 10 ML Syringe FLUSH PRN (00:33)
[2021-10-22] MEDS ORDERED: Sodium Chloride 0.9% 1,000 ML IV ONE (00:33)
[2021-10-22] MEDS ORDERED: Sodium Chloride 0.9% 2.5 ML Syringe FLUSH PRN (00:33)
--- NOTE | 2021-10-22 01:04 | CR ---
Indication: Shortness of breath Technique: Chest 1 view Comparison: Chest x-ray 04/23/2021 Findings/Impression: Cardiovascular and mediastinum: Normal heart size. Lungs and pleural space: No pleural effusion pneumothorax. Basilar discoid atelectasis. Bones and soft tissues: Status post thoracolumbar surgery. Old left 8th and 9th rib fractures. Old right 10th rib fracture. Dictated by Iggy Sharpe MD @ 10/22/2021 1:02:56 AM (Electronically Signed)
--- NOTE | 2021-10-22 01:12 | EDM.PDOC ---
ED HPI GENERAL MEDICAL PROBLEM - General Chief Complaint: General Stated Complaint: ALTERED MENTAL STATUS Time Seen by Provider: 10/22/21 00:37 - History of Present Illness INITIAL COMMENTS - FREE TEXT/NARRATIVE: HISTORY AND PHYSICAL: History of present illness: This is a 65-year-old gentleman with a history significant for traumatic brain injury secondary to a fall, DVT that occurred shortly after his injury and has been on warfarin since, GI bleed, paraplegia, confusion, chronic indwelling Childers catheter, decubitus ulcers, who presents to the ER today from home secondary to multiple complaints. Apparently per patient's he was seen and evaluated at [facility] several weeks ago secondary to difficulty swallowing and was noted at that time to have dysphagia. Patient presents ER today secondary to pain with swallowing. Patient reports that he has been having difficulty tolerating p.o. solids but has been able to tolerate p.o. liquids without difficulty. Patient presents in the ED today similar to a prior presentation on September 26 when he was also complaining at that time of difficulty swallowing but is drinking 2 bottles of orange Powerade while here in the ED without difficulty. Patient presents to the ER today with multiple vague complaints including shortness of breath, difficulty swallowing. I have discussed the patient's condition with his Gayathri over the phone and she reports that she was concerned about a nonhealing decubitus ulcer that is been present for approximately 3 months and has been still persistent despite treatment. Patient's reports that that home health nurse that has been assisting her however as of approximately 1 week ago they no longer have her assistance since she moved to [place]. Patient's reports that she feels that the patient needs to go into a nursing facility where they can provide him more care however the patient does not wish to go and the reports that it is too expensive and outside their financial means to do so. reports that he has been having intermittent episodes of confusion for several months now. She reports that today he was having episodes of confusion where she thought he was having hallucinations and he was not able to be redirected. Patient denies any recent fevers, shakes, chills, nausea, vomiting, diarrhea, abdominal pain, chest pain. Patient denies any recent falls or trauma. Patient denies any head injury. Patient reports that he does not feel confused currently and that he knows where he is at. Patient is lucid and able to have a full conversation with me and able to give me his entire history, medications, and surrounding situations. 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 Patient is able to give me exact dates of when his employment ended. Patient is able to give me today's date and that it is New Year's Cookie. Patient is able to tell me which hospital he is at. Throughout patient's evaluation, he has been texting his friends to keep them apprised of his situation and that he is here at the hospital. Review of systems: As per history of present illness and below otherwise all systems reviewed and negative. Past medical history: As per history of present illness and as reviewed below otherwise noncontributory. Surgical history: As per history of present illness and as reviewed below otherwise noncontributory. Social history: No reported history of drug abuse. Family history: As per history of present illness and as reviewed below otherwise noncontributory. Physical exam: This patient was seen and evaluated during the 2019 SARS-CoV-2 novel coronavirus pandemic period. Community viral transmission is ongoing at time of this encounter and the emergency department is operating under pandemic response procedures. Constitutional: Patient is oriented to person, place, and time. Appears well- developed and well-nourished. No distress. HEENT: Moist mucous membranes Head: Normocephalic and atraumatic Eyes: Right eye exhibits no discharge. Left eye exhibits no discharge. No scleral icterus Neck: Normal range of motion. No tracheal deviation present. Cardiovascular: Normal rate and regular rhythm. Pulmonary: Effort normal, no respiratory distress. No wheezing rales or rhonchi. Patient speaking full sentences without tachypnea. Patient's pulse ox is 96% on room air. Patient is able to speak in full sentences without any shortness of breath or discomfort. Abd: Soft, nondistended, no rebound/guarding, no psoas or obturator signs, no tenderness at Mcberney's point, no Huitron's sign. Pt does not present with an exam that would be consistent with an acute surgical abdomen at this time. Nontender to palpation. Suprapubic catheter in place. Musculoskeletal: Normal range of motion Neurologic: Alert and oriented to person, place and time. Paraplegic Skin: [place], warm and dry. Psychiatric: Normal mood and affect. Behavior is normal. Judgment and thought content normal. Nursing note and vital signs have been reviewed Sacrum evaluated with a grade 1/grade 2 sacral decubitus ulcer without any evidence of infection or drainage. Patient also has a grade 1/grade 2 ulcer to his right proximal upper thigh with no evidence of infection. Diagnostics: CBC, CMP within normal limits. Urinalysis with 5-10 WBCs and 2+ bacteria however this is a indwelling Childers unlikely contaminant/colonization. Patient WBC count was normal and he has no fever. Therapeutics: [] Assessment and plan: 65-year-old gentleman who presents ER today secondary to altered mentation, confusion, difficult to redirect. In the ED, the patient is alert awake and orient x3. Patient has no complaints at this time other than intermittent episodes of shortness of breath although he has a pulse ox of 96% in the ER while speaking and is been able to speak in full sentences without difficulty. Throughout the evaluation in the ER the patient has remained alert awake oriented x3 and is easily redirected by me. Patient does have somewhat bizarre behavior but having evaluated this patient in the past it appears to be his baseline. At this time, I do not feel that the patient needs criteria for emergent inpatient evaluation given the current Covid crisis I feel that this would be contraindicated for the patient's wellbeing. I have discussed with the patient and his over the phone that she should speak to his family physician try to get more home health resources and to try to see if there is any other options for living conditions for him such as a assisted living facility. Reassessment at the time of disposition demonstrates that the patient is in no acute distress. The patient has remained stable throughout the entire ED visit and is without objective evidence for acute process requiring urgent intervention or hospitalization. The patient is stable for discharge, counseling is provided as documented above, discussed symptomatic treatment and specific conditions for return. I have spoken with the patient/caregiver and discussed todays findings, in addition to providing specific details for the plan of care. Questions are answered and there is agreement with the plan. Definitive disposition and diagnosis as appropriate pending reevaluation and review of above. - Related Data Allergies Allergy/AdvReac Type Severity Reaction Status Date / Time amoxicillin [From Augmentin] Allergy Cannot Verified 10/22/21 00:38 Remember clavulanic acid Allergy Cannot Verified 10/22/21 00:38 [From Augmentin] Remember Home Meds: Home Meds tiZANidine [Zanaflex] 4 mg PO QPM 11/21/14 [History] LORazepam 0.5 mg PO DAILY PRN 05/31/15 [History] Simvastatin [Zocor] 20 mg PO BEDTIME 05/31/15 [History] Mirtazapine 30 mg PO BEDTIME 04/16/20 [History] Omeprazole 20 mg PO ACBREAKFAST 04/23/21 [History] Warfarin [Coumadin] 5 mg PO DAILY 04/23/21 [History] Past Medical History HEENT History: Reports: Other (See Below) Other HEENT History: wears glasses Cardiovascular History: Reports: Blood Clots/VTE/DVT Other Cardiovascular History: hx of DVT- PE (post-op back surgery in 2014) had filter placed in "abdomen" Respiratory History: Reports: Asthma Other Respiratory History: hx of asthma as a child- no inhaler Gastrointestinal History: Reports: GERD Other Gastrointestinal History: s/p umbilical hernia repair 2009 Genitourinary History: Reports: Urinary Incontinence Other Genitourinary History: patient does self catheterization every 4-5 hours Musculoskeletal History: Reports: Back Pain, Chronic Other Musculoskeletal History: 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 Neurological History: Reports: Other (See Below) Other Neuro History: 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 Psychiatric History: Reports: Anxiety, Depression Other Psychiatric History: taking Cymbalta and Lorazepam Hematologic History: Reports: Anticoagulation Therapy, Blood Transfusion(s) Other Hematologic History: 2013 - Infectious Disease History Infectious Disease History: Reports: Chicken Pox - Past Surgical History Head Surgeries/Procedures: Reports: None Cardiovascular Surgical History: Reports: Vascular Surgery Other Cardiovascular Surgeries/Procedures: "filter " placed in "abdomen" becaused of DVT GI Surgical History: Reports: Hernia, Abdominal Other GI Surgeries/Procedures: hx of Umbilical hernia repair Neurological Surgical History: Reports: Other (See Below) Other Neurological Surgeries/Procedures: rods in back Other Musculoskeletal Surgeries/Procedures:: back surgery Social & Family History - Caffeine Use Caffeine Use: Reports: None ED ROS GENERAL - Review of Systems Review Of Systems: See Below ED EXAM, GENERAL - Physical Exam Exam: See Below Course - Vital Signs Last Recorded V/S: Last Vital Signs Temp 97.9 F 10/22/21 00:34 Pulse 77 10/22/21 01:45 Resp 18 10/22/21 01:45 BP 133/86 10/22/21 01:45 Pulse Ox 97 10/22/21 01:45 - Orders/Labs/Meds Orders: Active Orders 24 hr Category Date Time Status Sodium Chloride 0.9% [Saline Flush] Med 10/22/21 00:33 Active 10 ml FLUSH ASDIRECTED PRN Sodium Chloride 0.9% [Saline Flush] Med 10/22/21 00:33 Active 2.5 ml FLUSH ASDIRECTED PRN Saline Lock Insert [OM.PC] Stat Oth 10/22/21 00:33 Ordered Medication Orders Sodium Chloride (Sodium Chloride 0.9% 10 Ml Syringe) 10 ml FLUSH ASDIRECTED PRN PRN Reason: Keep Vein Open Last Admin: 10/22/21 00:58 Dose: 10 ml Documented by: KATHARINE Sodium Chloride (Sodium Chloride 0.9% 2.5 Ml Syringe) 2.5 ml FLUSH ASDIRECTED PRN PRN Reason: Keep Vein Open Last Admin: 10/22/21 00:59 Dose: 2.5 ml Documented by: KATHARINE Labs: Laboratory Tests 10/22/21 10/22/21 10/22/21 Range/Units 00:49 00:49 00:54 WBC 8.63 (4.0-11.0) K/uL RBC 5.05 (4.50-5.90) M/uL Hgb 14.9 (13.0-17.0) g/dL Hct 44.3 (38.0-50.0) % MCV 87.7 (80.0-98.0) fL MCH 29.5 (27.0-32.0) pg MCHC 33.6 (31.0-37.0) g/dL RDW Std Deviation 45.1 (28.0-62.0) fl RDW Coeff of Emily 14 (11.0-15.0) % Plt Count 261 (150-400) K/uL MPV 10.30 (7.40-12.00) fL Neut % (Auto) 65.2 (48.0-80.0) % Lymph % (Auto) 23.8 (16.0-40.0) % [place] % (Auto) 9.4 (0.0-15.0) % Eos % (Auto) 1.4 (0.0-7.0) % Baso % (Auto) 0.2 (0.0-1.5) % Neut # (Auto) 5.6 (1.4-5.7) K/uL Lymph # (Auto) 2.1 (0.6-2.4) K/uL [place] # (Auto) 0.8 (0.0-0.8) K/uL Eos # (Auto) 0.1 (0.0-0.7) K/uL Baso # (Auto) 0.0 (0.0-0.1) K/uL Nucleated RBC % 0.0 /100WBC Nucleated RBCs # 0 K/uL Sodium 138 (136-148) mmol/L Potassium 4.4 (3.5-5.1) mmol/L Chloride 103 (98-107) mmol/L Carbon Dioxide 28.5 (21.0-32.0) mmol/L BUN 10 (7.0-18.0) mg/dL Creatinine 0.6 L (0.8-1.3) mg/dL Est Cr Clr Drug Dosing 134.22 mL/min Estimated GFR (MDRD) > 60.0 ml/min Glucose 97 (74-106) mg/dL Calcium 8.4 L (8.5-10.1) mg/dL Magnesium 1.9 (1.8-2.4) mg/dL Total Bilirubin 0.7 (0.2-1.0) mg/dL AST 33 (15-37) IU/L ALT 25 (14-63) IU/L Alkaline Phosphatase 109 (46-116) U/L Total Protein 6.4 (6.4-8.2) g/dL Albumin 2.8 L (3.4-5.0) g/dL Globulin 3.6 (2.6-4.0) g/dL Albumin/Globulin Ratio 0.8 L (0.9-1.6) Urine Color YELLOW Urine Appearance SLT CLOUDY Urine pH 6.0 (5.0-8.0) Ur Specific Webster <= 1.005 (1.001-1.035) Urine Protein NEGATIVE (NEGATIVE) mg/dL Urine Glucose (UA) NEGATIVE (NEGATIVE) mg/dL Urine Ketones NEGATIVE (NEGATIVE) mg/dL Urine Occult Blood LARGE H (NEGATIVE) Urine Nitrite NEGATIVE (NEGATIVE) Urine Bilirubin NEGATIVE (NEGATIVE) Urine Urobilinogen 0.2 (<2.0) EU/dL Ur Leukocyte Esterase LARGE H (NEGATIVE) Urine RBC 1-5 (0-2/HPF) Urine WBC 10-15 (0-5/HPF) Ur Epithelial Cells RARE (NONE-FEW) Urine Bacteria 2+ H (NEGATIVE) SARS-CoV-2 RNA (WILLY) (NEGATIVE) 10/22/21 Range/Units 00:57 WBC (4.0-11.0) K/uL RBC (4.50-5.90) M/uL Hgb (13.0-17.0) g/dL Hct (38.0-50.0) % MCV (80.0-98.0) fL MCH (27.0-32.0) pg MCHC (31.0-37.0) g/dL RDW Std Deviation (28.0-62.0) fl RDW Coeff of Emily (11.0-15.0) % Plt Count (150-400) K/uL MPV (7.40-12.00) fL Neut % (Auto) (48.0-80.0) % Lymph % (Auto) (16.0-40.0) % [place] % (Auto) (0.0-15.0) % Eos % (Auto) (0.0-7.0) % Baso % (Auto) (0.0-1.5) % Neut # (Auto) (1.4-5.7) K/uL Lymph # (Auto) (0.6-2.4) K/uL [place] # (Auto) (0.0-0.8) K/uL Eos # (Auto) (0.0-0.7) K/uL Baso # (Auto) (0.0-0.1) K/uL Nucleated RBC % /100WBC Nucleated RBCs # K/uL Sodium (136-148) mmol/L Potassium (3.5-5.1) mmol/L Chloride (98-107) mmol/L Carbon Dioxide (21.0-32.0) mmol/L BUN (7.0-18.0) mg/dL Creatinine (0.8-1.3) mg/dL Est Cr Clr Drug Dosing mL/min Estimated GFR (MDRD) ml/min Glucose (74-106) mg/dL Calcium (8.5-10.1) mg/dL Magnesium (1.8-2.4) mg/dL Total Bilirubin (0.2-1.0) mg/dL AST (15-37) IU/L ALT (14-63) IU/L Alkaline Phosphatase (46-116) U/L Total Protein (6.4-8.2) g/dL Albumin (3.4-5.0) g/dL Globulin (2.6-4.0) g/dL Albumin/Globulin Ratio (0.9-1.6) Urine Color Urine Appearance Urine pH (5.0-8.0) Ur Specific Webster (1.001-1.035) Urine Protein (NEGATIVE) mg/dL Urine Glucose (UA) (NEGATIVE) mg/dL Urine Ketones (NEGATIVE) mg/dL Urine Occult Blood (NEGATIVE) Urine Nitrite (NEGATIVE) Urine Bilirubin (NEGATIVE) Urine Urobilinogen (<2.0) EU/dL Ur Leukocyte Esterase (NEGATIVE) Urine RBC (0-2/HPF) Urine WBC (0-5/HPF) Ur Epithelial Cells (NONE-FEW) Urine Bacteria (NEGATIVE) SARS-CoV-2 RNA (WILLY) NEGATIVE (NEGATIVE) Meds: Medications Generic Name Dose Route Start Last Admin Trade Name Freq PRN Reason Stop Dose Admin Sodium Chloride 10 ml 10/22/21 00:33 10/22/21 00:58 Sodium Chloride 0.9% 10 Ml Syringe FLUSH 10 ml ASDIRECTED PRN Administration Keep Vein Open Sodium Chloride 2.5 ml 10/22/21 00:33 10/22/21 00:59 Sodium Chloride 0.9% 2.5 Ml Syringe FLUSH 2.5 ml ASDIRECTED PRN Administration Keep Vein Open Discontinued Medications Generic Name Dose Route Start Last Admin Trade Name Freq PRN Reason Stop Dose Admin Sodium Chloride 1,000 mls @ 999 mls/hr 10/22/21 00:33 10/22/21 00:56 Normal Saline IV 10/22/21 01:33 999 mls/hr .Bolus ONE Administration Departure - Departure Time of Disposition: 02:41 Disposition: Home, Self-Care 01 Condition: Good Clinical Impression: Confusion, Decubitus ulcer of sacral area, Indwelling Childers catheter present, Immobility syndrome (paraplegic), Anticoagulated - Discharge Information Referrals: PCP,None [Primary Care Provider] - Forms: ED Department Discharge Additional Instructions: You were seen and evaluated in ER today secondary to concerns of confusion and shortness of breath difficulty swallowing. While you have been in the ER, your oxygen level has remained excellent at 96 to 98%. You have been able to tolerate your Powerade without difficulty and your blood tests are all normal without any evidence of dehydration or malnutrition. Your chest x-ray reveals no evidence of aspiration. Please make an appointment to see your family doctor this week for reevaluation and assistance with obtaining further outpatient nursing assistance. The following information is given to patients seen in the emergency department who are being discharged to home. This information is to outline your options for follow-up care. We provide all patients seen in our emergency department with a follow-up referral. The need for follow-up, as well as the timing and circumstances, are variable depending upon the specifics of your emergency department visit. If you don't have a primary care physician on staff, we will provide you with a referral. We always advise you to contact your personal physician following an emergency department visit to inform them of the circumstance of the visit and for follow-up with them and/or the need for any referrals to a consulting specialist. The emergency department will also refer you to a specialist when appropriate. This referral assures that you have the opportunity for follow-up care with a specialist. All of these measure are taken in an effort to provide you with optimal care, which includes your follow-up. Under all circumstances we always encourage you to contact your private physician who remains a resource for coordinating your care. When calling for follow-up care, please make the office aware that this follow-up is from your recent emergency room visit. If for any reason you are refused follow-up, please contact the [facility] Emergency Department at and asked to speak to the emergency department charge nurse. [facility] - Primary Care [address] [place] [id number] [facility] [address] [place] [id number] Sepsis Event Note (ED) - Evaluation Sepsis Screening Result: No Definite Risk - Focused Exam Vital Signs: Vital Signs Temp Pulse Resp BP Pulse Ox 10/22/21 01:45 77 18 133/86 97 10/22/21 00:34 97.9 F 85 18 122/89 95 - My Orders Last 24 Hours: My Active Orders 10/22/21 00:33 Sodium Chloride 0.9% [Saline Flush] 10 ml FLUSH ASDIRECTED PRN Sodium Chloride 0.9% [Saline Flush] 2.5 ml FLUSH ASDIRECTED PRN Saline Lock Insert [OM.PC] Stat - Assessment/Plan Last 24 Hours: My Active Orders 10/22/21 00:33 Sodium Chloride 0.9% [Saline Flush] 10 ml FLUSH ASDIRECTED PRN Sodium Chloride 0.9% [Saline Flush] 2.5 ml FLUSH ASDIRECTED PRN Saline Lock Insert [OM.PC] Stat
[2021-10-22 01:44] LABS: BLOOD UREA NITROGEN,BUN 10 mg/dL (7.0-18.0); CARBON DIOXIDE,CO2 28.5 mmol/L (21.0-32.0); CHLORIDE,CL 103 mmol/L (98-107); GLUCOSE RANDOM 97 mg/dL (74-106); POTASSIUM,K 4.4 mmol/L (3.5-5.1); SODIUM,NA 138 mmol/L (136-148)
[2021-10-22 03:56] VITALS: BP 117/70; PULSE 63
== END 2021-10-22 04:15 | disposition home or self-care (01) ==
LOC: MW.ED 00:30
DX: T83.091A Other mechanical complication of indwelling urethral catheter, initial encounter (principal); R41.0 Disorientation, unspecified; L89.159 Pressure ulcer of sacral region, unspecified stage; G82.20 Paraplegia, unspecified; D68.9 Coagulation defect, unspecified; K21.9 Gastro-esophageal reflux disease without esophagitis; Z88.0 Allergy status to penicillin; Z79.899 Other long term (current) drug therapy; Z20.822 Contact with and (suspected) exposure to COVID-19
CPT/HCPCS: 36415; 71045; 80053; 81001; 83735; 85025; 87635; 99285; J7030; U0002

== ENCOUNTER 2023-04-23 10:10 | Emergency (ER) | payer MEDICARE, OTHER ==
[2023-04-23 10:43] VITALS: BP 102/46; PULSE 81
[2023-04-23] MEDS ORDERED: Sodium Chloride 0.9% 1,000 ML IV ONE (11:17)
[2023-04-23 12:21] LABS: BASOPHILS PERCENT AUTO 0.3 % (0.0-1.5); EOSINOPHILS PERCENT AUTO 0.5 % (0.0-7.0); HEMATOCRIT 44.9 % (38.0-50.0); HEMOGLOBIN 14.7 g/dL (13.0-17.0); LYMPHOCYTES ABSOLUTE AUTO 1.9 K/uL (0.6-2.4); LYMPHOCYTES PERCENT AUTO 21.7 % (16.0-40.0); MEAN CORPUSCULAR HEMOGLOBIN 30.7 pg (27.0-32.0); MEAN CORPUSCULAR HGB CONC 32.7 g/dL (31.0-37.0); MEAN CORPUSCULAR VOLUME 93.7 fL (80.0-98.0); MONOCYTES ABSOLUTE AUTO 0.7 K/uL (0.0-0.8); MONOCYTES PERCENT AUTO 8.1 % (0.0-15.0); NEUTROPHILS PERCENT AUTO 69.4 % (48.0-80.0); NRBC ABSOLUTE 0 K/uL; PLATELET COUNT,PLT 244 K/uL (150-400); RED BLOOD CELL COUNT 4.79 M/uL (4.50-5.90); WHITE BLOOD CELL COUNT,WBC 8.69 K/uL (4.0-11.0)
[2023-04-23 12:49] LABS: APPEARANCE,URINE CLOUDY; COLOR,URINE BROWN; GLUCOSE,URINE NEGATIVE (NEGATIVE); KETONES,URINE 15 mg/dL (NEGATIVE); LEUKOCYTE ESTERASE,URINE MODERATE (NEGATIVE); NITRITE,URINE POSITIVE (NEGATIVE); OCCULT BLOOD,URINE LARGE (NEGATIVE); PH,URINE 6.5 (5.0-8.0); PROTEIN,URINE >=300 mg/dL (NEGATIVE)
[2023-04-23 12:50] LABS: ALBUMIN 3.4 g/dL (3.4-5.0); BILIRUBIN TOTAL 0.4 mg/dL (0.2-1.0); CALCIUM 9.1 mg/dL (8.5-10.1); CREATININE 0.6 mg/dL (0.8-1.3); EST CRCL DRUG DOSING (CG) 130.73 mL/min; PROTEIN TOTAL,TP 6.9 g/dL (6.4-8.2)
[2023-04-23 12:51] LABS: INR 4.71 (0.86-1.11); PTT,PARTIAL THROMBOPLSTIN TIME 50.1 SEC (23.9-30.7)
[2023-04-23 12:52] LABS: BILIRUBIN,URINE MODERATE (NEGATIVE)
[2023-04-23 12:57] LABS: AMORPHOUS SEDIMENT,URINE MODERATE (NEGATIVE); BACTERIA,URINE MODERATE (NEGATIVE); EPITHELIAL CELLS,URINE OCCASIONAL (NONE-FEW); MUCUS,URINE OCCASIONAL (NONE-MOD); RBC,URINE TOO NUMEROUS TO CT (0-2/HPF); RENAL EPITHELIAL CELLS,URINE FEW; SQUAMOUS EPITHELIAL CELLS,UR OCCASIONAL; WBC,URINE 20-30 (0-5/HPF)
[2023-04-23] MEDS ORDERED: cefTRIAXone 1 GM in Sodium Chloride 0.9% 50 ML IV ONE (13:16)
[2023-04-23] MEDS ORDERED: Iopamidol 755 MG/ML 500 ML Multipack Bottle IVPUSH ONE (13:23)
[2023-04-23 16:02] LABS: LACTIC ACID 0.7 mmol/L (0.4-2.0)
== END 2023-04-23 15:40 | disposition home or self-care (01) ==
LOC: MW.ED 10:10
DX: N39.0 Urinary tract infection, site not specified (principal); R93.5 Abnormal findings on diagnostic imaging of other abdominal regions, including retroperitoneum; J45.909 Unspecified asthma, uncomplicated; K21.9 Gastro-esophageal reflux disease without esophagitis; Z79.01 Long term (current) use of anticoagulants; Z88.0 Allergy status to penicillin; Z88.1 Allergy status to other antibiotic agents; Z79.899 Other long term (current) drug therapy
CPT/HCPCS: 36415; 51702; 74178; 80053; 81001; 82550; 83605; 85025; 85610; 85652; 85730; 86140; 87040; 87086; 96361; 96365; 99284; J0696; J3490; J7030; Q9967

== ENCOUNTER 2023-09-24 11:02 | Emergency (ER) | payer MEDICARE, OTHER ==
[2023-09-24] MEDS ORDERED: Sodium Chloride 0.9% 1,000 ML IV ONE ×3 (11:05→12:49)
[2023-09-24] MEDS ORDERED: Haloperidol Lactate 5 MG/ML SDV IM ONE ×2 (11:07→11:40)
[2023-09-24] MEDS: LORazepam 2 MG/ML SDV IVPUSH ONE ×3 (11:17→12:18)
[2023-09-24 11:34] LABS: BASOPHILS ABSOLUTE AUTO 0.03 K/uL (0.00-0.20); BASOPHILS PERCENT AUTO 0.3 % (0.0-1.0); EOSINOPHILS ABSOLUTE AUTO 0.02 K/uL (0.00-0.45); EOSINOPHILS PERCENT AUTO 0.2 % (0.0-6.0); HEMATOCRIT 31.6 % (42.0-52.0); HEMOGLOBIN 10.8 g/dL (14.0-18.0); IMMATURE GRAN ABSOLUTE AUTO 0.07 K/uL (0.00-0.05); IMMATURE GRAN PERCENT AUTO 0.6 % (0.0-0.4); LYMPHOCYTES ABSOLUTE AUTO 0.53 K/uL (1.00-4.80); LYMPHOCYTES PERCENT AUTO 4.5 % (24.0-44.0); MEAN CORPUSCULAR HEMOGLOBIN 28.5 pg (28.0-32.0); MEAN CORPUSCULAR HGB CONC 34.2 g/dL (32.0-36.0); MEAN CORPUSCULAR VOLUME 83.4 fL (83.0-99.0); MEAN PLATELET VOLUME 9.9 fL (9.4-12.4); MONOCYTES ABSOLUTE AUTO 0.53 K/uL (0.00-0.80); MONOCYTES PERCENT AUTO 4.5 % (0.0-8.0); NEUTROPHILS ABSOLUTE AUTO 10.51 K/uL (1.80-7.70); NEUTROPHILS PERCENT AUTO 89.9 % (41.0-71.0); PLATELET COUNT,PLT 313 K/uL (150-400); RED BLOOD CELL COUNT 3.79 M/uL (4.52-5.90); WHITE BLOOD CELL COUNT,WBC 11.69 K/uL (3.9-11.3)
[2023-09-24] MEDS ORDERED: LORazepam 2 MG/ML SDV IVPUSH ONE (11:40)
[2023-09-24 12:04] LABS: PTT,PARTIAL THROMBOPLSTIN TIME 79.4 SEC (23.9-30.7)
[2023-09-24 12:23] LABS: INR > 8.00 (0.86-1.11); LACTIC ACID 1.6 mmol/L (0.4-2.0)
[2023-09-24 12:30] LABS: A/G RATIO 0.3 (0.9-1.6); ALBUMIN 1.6 g/dL (3.4-5.0); BILIRUBIN TOTAL 0.8 mg/dL (0.2-1.0); CALCIUM 9.3 mg/dL (8.5-10.1); CARBON DIOXIDE,CO2 30.2 mmol/L (21.0-32.0); CREATININE 0.8 mg/dL (0.8-1.3); EST CRCL DRUG DOSING (CG) 95.05 mL/min; MAGNESIUM 1.7 mg/dL (1.8-2.4); POTASSIUM,K 3.6 mmol/L (3.5-5.1); PROTEIN TOTAL,TP 6.5 g/dL (6.4-8.2)
[2023-09-24 12:47] LABS: C-REACTIVE PROTEIN 32.17 mg/dL (<0.3)
[2023-09-24 13:00] LABS: CORONAVIRUS COVID-19 NAA NEGATIVE (NEGATIVE); INFLUENZA A NAA NEGATIVE (NEGATIVE); INFLUENZA B NAA NEGATIVE (NEGATIVE); RESPIRATORY SYNCYTIAL VIR NAA NEGATIVE (NEGATIVE)
[2023-09-24] MEDS ORDERED: cefTRIAXone 1 GM in Sodium Chloride 0.9% 50 ML IV ONE (13:17)
[2023-09-24] MEDS ORDERED: Iopamidol 755 MG/ML 500 ML Multipack Bottle IVPUSH STA (13:37)
[2023-09-24] MEDS ORDERED: VANCOmycin 1.5 GM/300 ML 1.5 GM in Premix Bag 1 BAG IV ONE (13:45)
[2023-09-24 13:56] LABS: COLOR,URINE YELLOW; GLUCOSE,URINE NEGATIVE (NEGATIVE); KETONES,URINE TRACE mg/dL (NEGATIVE); LEUKOCYTE ESTERASE,URINE TRACE (NEGATIVE); NITRITE,URINE POSITIVE (NEGATIVE); OCCULT BLOOD,URINE MODERATE (NEGATIVE); PH,URINE 6.5 (5.0-8.0); PROTEIN,URINE NEGATIVE (NEGATIVE)
[2023-09-24 13:57] LABS: APPEARANCE,URINE CLOUDY; BILIRUBIN,URINE SMALL (NEGATIVE)
[2023-09-24 14:03] LABS: BACTERIA,URINE FEW (NEGATIVE); CALCIUM OXALATE CRYSTALS,URINE MODERATE (NEGATIVE); EPITHELIAL CELLS,URINE OCCASIONAL (NONE-FEW); MUCUS,URINE LIGHT (NONE-MOD)
[2023-09-24 17:28] VITALS: BP 122/71
[2023-09-24 18:52] VITALS: PULSE 84
== END 2023-09-24 19:22 ==
LOC: MW.ED 11:02
DX: M46.27 Osteomyelitis of vertebra, lumbosacral region (principal); L02.212 Cutaneous abscess of back [any part, except buttock and flank]; K21.9 Gastro-esophageal reflux disease without esophagitis; J45.909 Unspecified asthma, uncomplicated; Z20.822 Contact with and (suspected) exposure to COVID-19; Z79.899 Other long term (current) drug therapy; Z79.01 Long term (current) use of anticoagulants; Z88.0 Allergy status to penicillin; Z88.1 Allergy status to other antibiotic agents
CPT/HCPCS: 0241U; 36415; 70450; 71045; 71260; 72125; 74177; 80053; 81001; 83605; 83690; 83735; 84484; 85025; 85610; 85730; 86140; 87040; 87070; 87075; 87154; 87205; 93005; J0696; J1630; J2060; J3370; J3430; J3490; J7030; Q9967; 72128-26; 72131-26; 87077; 87186; 93010; 96361; 96365; 96366; 96367; 96368; 96372; 96375; 99285-25; 99291